=== PATIENT | female | born 1980 | race Caucasian/White ===

== ENCOUNTER 2016-11-15 09:29 | Emergency (ER) | payer MEDICAID ==
[~2016-11-15] VITALS: Ht 152.4 cm; Wt 57.0 kg
[~2016-11-15 09:29] MED LIST: ASPI325T4 PO; OXYC-302 PO
[2016-11-15] MEDS ORDERED: GABA100C8 PO (09:59)
[2016-11-15] MEDS ORDERED: TRAZ100T15 PO (09:59)
[2016-11-15] MEDS ORDERED: [UNRECOGNIZED DRUG - OTHER] PO (10:00)
[2016-11-15] MEDS ORDERED: SODIUM CHLORIDE FLUSH 10ML SYR IVF ONE (10:30)
[2016-11-15] MEDS ORDERED: MORPHINE SULFATE 4 MG/ML, 1ML IVPush PRN (10:30)
[2016-11-15] MEDS ORDERED: ONDANSETRON 2MG/ML, 2ML IVPush ONE (10:30)
[2016-11-15] MEDS ORDERED: ONDANSETRON 2MG/ML, 2ML ONE (10:41)
[2016-11-15] MEDS ORDERED: MORPHINE SULFATE 4 MG/ML, 1ML ONE (10:41)
[2016-11-15 11:07] LABS: ASPARTATE AMINO TRANSFERASE 83 U/L (15-37); BLOOD UREA NITROGEN 7 mg/dL (7-18)
[2016-11-15 13:39] VITALS: BP 117/79
== END 2016-11-15 13:42 | disposition home or self-care (01) ==
LOC: ED 13:36
DX: S22.42XA Multiple fractures of ribs, left side, initial encounter for closed fracture (principal); R10.12 Left upper quadrant pain; R11.2 Nausea with vomiting, unspecified; R19.7 Diarrhea, unspecified; F10.220 Alcohol dependence with intoxication, uncomplicated; F17.210 Nicotine dependence, cigarettes, uncomplicated; F15.10 Other stimulant abuse, uncomplicated; F12.10 Cannabis abuse, uncomplicated; F14.10 Cocaine abuse, uncomplicated; F11.10 Opioid abuse, uncomplicated; X58.XXXA Exposure to other specified factors, initial encounter; Y93.89 Activity, other specified; Y92.89 Other specified places as the place of occurrence of the external cause; Y99.8 Other external cause status
CPT/HCPCS: 36415; 71260; 74177; 80053; 80307; 81003; 82140; 83690; 84703; 85025; 85610; 96374; 96375; 99285; J2405

== ENCOUNTER 2016-11-22 15:09 | Emergency (ER) | payer MEDICAID ==
[~2016-11-22] VITALS: Ht 162.6 cm; Wt 57.0 kg
[~2016-11-22 15:09] MED LIST changes: +GABA100C8 PO; +TRAZ100T15 PO; +[UNRECOGNIZED DRUG - OTHER] PO
[2016-11-22 15:52] LABS: BLOOD UREA NITROGEN 7 mg/dL (7-18)
[2016-11-22] MEDS ORDERED: SODIUM CHLORIDE FLUSH 10ML SYR IVF ONE (16:00)
[2016-11-22] MEDS ORDERED: SODIUM CHLORIDE 0.9% 1,000ML IVBOLUS ONE (16:00)
[2016-11-22] MEDS ORDERED: ESCI10TA PO (16:02)
[2016-11-22] MEDS ORDERED: NALT50TA PO (16:02)
[2016-11-22] MEDS ORDERED: TRAM50TA2 PO (16:02)
[2016-11-22] MEDS ORDERED: ONDA4TAB10 PO (16:02)
[2016-11-22 17:32] VITALS: BP 115/85
== END 2016-11-22 17:39 | disposition other institution (70) ==
LOC: ED 16:29
DX: E86.0 Dehydration (principal); R53.1 Weakness; T40.4X5A Adverse effect of other synthetic narcotics, initial encounter; T40.7X5A Adverse effect of cannabis (derivatives), initial encounter; T43.215A Adverse effect of selective serotonin and norepinephrine reuptake inhibitors, initial encounter; F10.20 Alcohol dependence, uncomplicated; F12.20 Cannabis dependence, uncomplicated; Y92.89 Other specified places as the place of occurrence of the external cause; J45.909 Unspecified asthma, uncomplicated; G40.909 Epilepsy, unspecified, not intractable, without status epilepticus
CPT/HCPCS: 36415; 80048; 81001; 82040; 82550; 85025; 93005; 96360; 99285; J7030

== ENCOUNTER 2016-11-25 19:44 | Inpatient (IN) | payer MEDICAID ==
[~2016-11-25] VITALS: Ht 152.4 cm; Wt 58.7 kg
[~2016-11-25 19:44] MED LIST changes: +ESCI10TA PO; +NALT50TA PO; +ONDA4TAB10 PO; +TRAM50TA2 PO
[2016-11-25] MEDS ORDERED: ONDANSETRON 2MG/ML, 2ML IVPush ONE (20:30)
[2016-11-25] MEDS ORDERED: SODIUM CHLORIDE FLUSH 10ML SYR IVF ONE (20:30)
[2016-11-25] MEDS ORDERED: SODIUM CHLORIDE 0.9% 1,000ML IVBOLUS ONE (20:30)
[2016-11-25 20:50] LABS: ASPARTATE AMINO TRANSFERASE 294 U/L (15-37); BLOOD UREA NITROGEN 7 mg/dL (7-18)
[2016-11-25] MEDS ORDERED: ONDANSETRON 2MG/ML, 2ML ONE ×2 (21:18→21:46)
[2016-11-25] MEDS: SODIUM CHLORIDE 0.9% 1,000ML IVBOLUS ONE ×2 (21:33→22:03)
[2016-11-25] MEDS ORDERED: SODIUM CHLORIDE 0.9% 1,000 ML IV ONE (22:42)
[2016-11-25] MEDS ORDERED: PROCHLORPERAZINE 5 MG/ML, 2ML ONE (22:59)
[2016-11-25] MEDS ORDERED: MORPHINE SULFATE 4 MG/ML, 1ML IVPush PRN ×2 (23:00)
[2016-11-25] MEDS ORDERED: PROCHLORPERAZINE 5 MG/ML, 2ML IVPush ONE (23:00)
[2016-11-25] MEDS ORDERED: ONDANSETRON 2MG/ML, 2ML IVPush PRN (23:00)
[2016-11-25] MEDS ORDERED: METOCLOPRAMIDE 5 MG/ML, 2ML ONE (23:29)
[2016-11-25] MEDS ORDERED: METOCLOPRAMIDE 5 MG/ML, 2ML IVPush ONE (23:30)
[2016-11-25 23:52] VITALS: BP 134/8
[2016-11-26] MEDS: D5%-0.45% NACL 1,000 ML IV SCH ×3 (00:34→18:23)
[2016-11-26] MEDS ORDERED: ONDANSETRON 2MG/ML, 2ML IVP PRN (01:00)
[2016-11-26] MEDS: ENOXAPARIN 40 MG/0.4 ML SQ SCH (01:00)
[2016-11-26] MEDS ORDERED: FOLIC ACID 5 MG/ML IM ONE (01:00)
[2016-11-26] MEDS ORDERED: CHLORDIAZEPOXIDE 10 MG CAPSULE PO PRN (01:00)
[2016-11-26] MEDS ORDERED: THIAMINE 200 MG in DEXTROSE 5% 50 ML IVPB ONE (01:00)
[2016-11-26] MEDS ORDERED: LABETALOL 5MG/ML, 20ML IV PRN (01:00)
[2016-11-26] MEDS ORDERED: CHLORDIAZEPOXIDE 25 MG CAPSULE PO PRN ×3 (01:00)
[2016-11-26 03:25] VITALS: BP 132/90
[2016-11-26 06:35] VITALS: BP 127/83
[2016-11-26] MEDS ORDERED: LORazepam 1MG TABLET PO PRN ×4 (07:30)
[2016-11-26] MEDS ORDERED: LORazepam 2 MG/ML, 1ML IV PRN ×5 (07:30)
[2016-11-26] MEDS ORDERED: LORazepam 0.5MG TABLET PO PRN (07:30)
[2016-11-26] MEDS: CHLORDIAZEPOXIDE 25 MG CAPSULE PO SCH ×3 (07:43→21:10)
[2016-11-26] MEDS: PANTOPRAZOLE 40 MG IV IVP SCH (07:43)
[2016-11-26 08:47] LABS: ASPARTATE AMINO TRANSFERASE 184 U/L (15-37); BLOOD UREA NITROGEN 4 mg/dL (7-18)
[2016-11-26 13:36] VITALS: BP 123/86
[2016-11-26 18:31] VITALS: BP 121/84
[2016-11-27 00:48] VITALS: BP 122/85
[2016-11-27] MEDS: D5%-0.45% NACL 1,000 ML IV SCH ×2 (01:00→07:52)
[2016-11-27] MEDS: ENOXAPARIN 40 MG/0.4 ML SQ SCH (01:00)
[2016-11-27 05:37] LABS: BLOOD UREA NITROGEN 3 mg/dL (7-18)
[2016-11-27 07:14] VITALS: BP 109/77
[2016-11-27] MEDS: PANTOPRAZOLE 40 MG IV IVP SCH (07:51)
[2016-11-27] MEDS: CHLORDIAZEPOXIDE 25 MG CAPSULE PO SCH (07:51)
[2016-11-27] MEDS ORDERED: MAGNESIUM SULFATE PMX 2GM/50ML 50 ML IV ONE (08:00)
[2016-11-27] MEDS ORDERED: SODIUM PHOSPHATE 20 MMOL in SODIUM CHLORIDE 0.9% 500 ML IV SCH (08:30)
[2016-11-27] MEDS ORDERED: POTASSIUM CHLORIDE 20 MEQ TAB.ER.PRT PO SCH (09:00)
[2016-11-27 12:10] VITALS: BP 119/75
== END 2016-11-27 15:56 | disposition left against medical advice (07) | DRG 439 ==
LOC: ED 22:41 → EDIP 22:42 → ED 22:54 → 3NE 23:41
PROVIDERS: ADMIT Internal Medicine; ATTEND Internal Medicine
DX: K85.20 Alcohol induced acute pancreatitis without necrosis or infection (principal); E44.1 Mild protein-calorie malnutrition; E87.1 Hypo-osmolality and hyponatremia; F10.239 Alcohol dependence with withdrawal, unspecified; E87.2 Acidosis; E83.39 Other disorders of phosphorus metabolism; E83.42 Hypomagnesemia; E87.6 Hypokalemia; Y90.8 Blood alcohol level of 240 mg/100 ml or more; J45.909 Unspecified asthma, uncomplicated; K70.10 Alcoholic hepatitis without ascites; K76.0 Fatty (change of) liver, not elsewhere classified; F17.210 Nicotine dependence, cigarettes, uncomplicated; F32.9 Major depressive disorder, single episode, unspecified; E86.1 Hypovolemia; Z53.21 Procedure and treatment not carried out due to patient leaving prior to being seen by health care provider; Z68.25 Body mass index [BMI] 25.0-25.9, adult; Z91.5 Personal history of self-harm; Z82.3 Family history of stroke; Z80.1 Family history of malignant neoplasm of trachea, bronchus and lung; Z80.42 Family history of malignant neoplasm of prostate; Z87.11 Personal history of peptic ulcer disease; Z88.6 Allergy status to analgesic agent
CPT/HCPCS: 36415; 76700; 80048; 80053; 80307; 82962; 83690; 83735; 84100; 84703; 85025; 96361; 96374; 96375; J2405; J3411; C9113; J0780; J2765; J3475; J7030; J7040

== ENCOUNTER 2016-12-16 08:29 | Emergency (ER) | payer MEDICAID ==
[2016-12-16 08:38] VITALS: BP 118/80
[2016-12-16 09:29] LABS: ASPARTATE AMINO TRANSFERASE 474 U/L (15-37); BLOOD UREA NITROGEN 4 mg/dL (7-18)
[2016-12-16] MEDS ORDERED: SODIUM CHLORIDE 0.9% 1,000ML IVBOLUS ONE (09:30)
[2016-12-16] MEDS ORDERED: SODIUM CHLORIDE FLUSH 10ML SYR IVF ONE (09:30)
[2016-12-16 09:50] LABS: DIFF TOTAL CELLS COUNTED 100 CELL DIFF
[2016-12-16 10:07] LABS: ANISOCYTOSIS 1+; TARGET CELLS 1+; VERIFY COUNTS? YES
[2016-12-16 10:51] LABS: DAU SCREEN DISCLAIMER
== END 2016-12-16 11:35 | disposition home or self-care (01) ==
LOC: ED 08:49
DX: F10.121 Alcohol abuse with intoxication delirium (principal); F10.120 Alcohol abuse with intoxication, uncomplicated; G62.1 Alcoholic polyneuropathy; R94.5 Abnormal results of liver function studies; J45.909 Unspecified asthma, uncomplicated; F32.9 Major depressive disorder, single episode, unspecified; F17.210 Nicotine dependence, cigarettes, uncomplicated
CPT/HCPCS: 36415; 80053; 80307; 81003; 82140; 83690; 84146; 85025; 96360; 99284; J7030

== ENCOUNTER 2017-04-07 10:13 | Emergency (ER) | payer MEDICAID ==
[~2017-04-07] VITALS: Ht 152.4 cm; Wt 52.7 kg
[~2017-04-07 10:13] MED LIST changes: +ASPI325T17 PO; -ASPI325T4 PO; +GABA-826 PO; -GABA100C8 PO
[2017-04-07] MEDS ORDERED: TRAZ100T15 PO (10:27)
[2017-04-07] MEDS ORDERED: LORazepam 2 MG/ML, 1ML ONE ×3 (10:56→12:33)
[2017-04-07] MEDS ORDERED: ONDANSETRON 2MG/ML, 2ML ONE (10:56)
[2017-04-07] MEDS: LORazepam 2 MG/ML, 1ML IVPush PRN ×4 (10:59→12:36)
[2017-04-07] MEDS ORDERED: SODIUM CHLORIDE 0.9% 1,000ML IVBOLUS ONE (11:00)
[2017-04-07] MEDS ORDERED: CHLORDIAZEPOXIDE 25 MG CAPSULE PO PRN (11:00)
[2017-04-07] MEDS ORDERED: THIAMINE 100 MG in SODIUM CHLORIDE 0.9% 50 ML IVPB ONE (11:00)
[2017-04-07] MEDS ORDERED: SODIUM CHLORIDE FLUSH 10ML SYR IVF ONE (11:00)
[2017-04-07] MEDS ORDERED: ONDANSETRON 2MG/ML, 2ML IVPush ONE (11:00)
[2017-04-07 11:05] LABS: WHITE BLOOD COUNT 12.8 x10^3/uL (3.4-10)
[2017-04-07 11:11] LABS: BLOOD UREA NITROGEN 5 mg/dL (7-18)
[2017-04-07 13:20] VITALS: BP 132/86
== END 2017-04-07 13:23 | disposition home or self-care (01) ==
LOC: ED 13:15
DX: F10.239 Alcohol dependence with withdrawal, unspecified (principal); G40.909 Epilepsy, unspecified, not intractable, without status epilepticus; G62.9 Polyneuropathy, unspecified; F41.9 Anxiety disorder, unspecified; F32.9 Major depressive disorder, single episode, unspecified; J45.909 Unspecified asthma, uncomplicated; Z88.6 Allergy status to analgesic agent
CPT/HCPCS: 36415; 71010; 80048; 82040; 85025; 93005; 96365; 96375; 96376; 99291; J2060; J2405; J3411; J7030

== ENCOUNTER 2017-05-05 13:51 | Emergency (ER) | payer MEDICAID ==
[~2017-05-05] VITALS: Ht 152.4 cm; Wt 53.1 kg
[2017-05-05 14:07] VITALS: BP 99/67
[2017-05-05] MEDS ORDERED: ALBU0.63 NEB (14:34)
== END 2017-05-05 14:52 | disposition home or self-care (01) ==
LOC: ED 14:46
DX: J45.30 Mild persistent asthma, uncomplicated (principal); F10.20 Alcohol dependence, uncomplicated; F17.210 Nicotine dependence, cigarettes, uncomplicated; F32.9 Major depressive disorder, single episode, unspecified; F41.9 Anxiety disorder, unspecified; G40.909 Epilepsy, unspecified, not intractable, without status epilepticus; Z76.0 Encounter for issue of repeat prescription
CPT/HCPCS: 93005; 99283

== ENCOUNTER 2017-07-01 10:47 | Emergency (ER) | payer MEDICAID ==
[~2017-07-01] VITALS: Ht 162.6 cm; Wt 51.8 kg
[~2017-07-01 10:47] MED LIST changes: +ALBU0.63 NEB; +CITA20TA5 PO; +HYDR50CA2 PO
[2017-07-01] MEDS ORDERED: SODIUM CHLORIDE 0.9% 1,000 ML IV ONE (13:02)
[2017-07-01] MEDS ORDERED: HYDROmorphone 2 MG/ML, 1ML IVPush PRN (13:30)
[2017-07-01] MEDS ORDERED: SODIUM CHLORIDE 0.9% 1,000ML IVBOLUS ONE (13:30)
[2017-07-01] MEDS ORDERED: ONDANSETRON 2MG/ML, 2ML IVPush ONE (13:30)
[2017-07-01 13:36] LABS: HEMATOCRIT 42.4 % (34.6-47.8); HEMOGLOBIN 14.6 g/dL (11.7-16.4); WHITE BLOOD COUNT 6.6 x10^3/uL (3.4-10)
[2017-07-01 13:41] LABS: BLOOD UREA NITROGEN 6 mg/dL (7-18)
[2017-07-01 13:47] LABS: ASPARTATE AMINO TRANSFERASE 196 U/L (15-37)
[2017-07-01] MEDS ORDERED: SODIUM CHLORIDE FLUSH 10ML SYR IVF ONE (14:00)
[2017-07-01 14:21] VITALS: BP 131/90
[2017-07-01 14:21] LABS: ANISOCYTOSIS 2+
== END 2017-07-01 15:22 | disposition left against medical advice (07) ==
LOC: ED 13:48
DX: K85.20 Alcohol induced acute pancreatitis without necrosis or infection (principal); N30.00 Acute cystitis without hematuria; G40.909 Epilepsy, unspecified, not intractable, without status epilepticus; J45.909 Unspecified asthma, uncomplicated; F17.200 Nicotine dependence, unspecified, uncomplicated
CPT/HCPCS: 36415; 76830; 80053; 81001; 83690; 84703; 85025; 87077; 87086; 87186

== ENCOUNTER 2017-07-06 10:08 | Inpatient (IN) | payer MEDICAID ==
[~2017-07-06] VITALS: Ht 154.9 cm; Wt 47.8 kg
[2017-07-06] MEDS ORDERED: FAMOTIDINE 20 MG/2 ML IVP ONE (11:30)
[2017-07-06] MEDS ORDERED: SODIUM CHLORIDE 0.9% 1,000ML IVBOLUS ONE (11:30)
[2017-07-06] MEDS ORDERED: LORazepam 2 MG/ML, 1ML IVPush PRN (11:30)
[2017-07-06] MEDS ORDERED: MORPHINE SULFATE 4 MG/ML, 1ML IVPush PRN (11:30)
[2017-07-06] MEDS ORDERED: THIAMINE 100 MG in SODIUM CHLORIDE 0.9% 50 ML IVPB ONE (11:30)
[2017-07-06] MEDS ORDERED: ONDANSETRON 2MG/ML, 2ML IVPush ONE (11:30)
[2017-07-06] MEDS ORDERED: SODIUM CHLORIDE FLUSH 10ML SYR IVF ONE (11:30)
[2017-07-06] MEDS ORDERED: ONDANSETRON 2MG/ML, 2ML ONE (11:52)
[2017-07-06] MEDS ORDERED: LORazepam 2 MG/ML, 1ML ONE (11:53)
[2017-07-06 11:55] LABS: BLOOD UREA NITROGEN 13 mg/dL (7-18)
[2017-07-06] MEDS ORDERED: CEFTRIAXONE PMX 1GM/50ML 50 ML IV ONE (12:00)
[2017-07-06 12:02] LABS: ASPARTATE AMINO TRANSFERASE 265 U/L (15-37)
[2017-07-06 12:17] LABS: HEMATOCRIT 43.5 % (34.6-47.8); HEMOGLOBIN 14.9 g/dL (11.7-16.4); WHITE BLOOD COUNT 10.9 x10^3/uL (3.4-10)
[2017-07-06] MEDS ORDERED: MAGNESIUM SULFATE PMX 4GM/100M 100 ML IV ONE (12:30)
[2017-07-06] MEDS ORDERED: LORazepam 2 MG/ML, 1ML IV PRN ×3 (14:30)
[2017-07-06] MEDS ORDERED: POLYETHYLENE GLYCOL 17 GM PACKET PO PRN (14:30)
[2017-07-06] MEDS ORDERED: morphine SULFATE 10 MG/ML, 1ML IVPush PRN (14:30)
[2017-07-06] MEDS ORDERED: DOCUSATE 100 MG CAPSULE PO PRN (14:30)
[2017-07-06] MEDS ORDERED: ENALAPRILAT 1.25 MG/ML, 2ML IV PRN (14:30)
[2017-07-06] MEDS ORDERED: hydrALAzine 20 MG/ML, 1ML IV PRN (14:30)
[2017-07-06] MEDS ORDERED: LORazepam 1MG TABLET PO PRN ×2 (14:30)
[2017-07-06] MEDS ORDERED: ONDANSETRON 2MG/ML, 2ML IVPush PRN (14:30)
[2017-07-06] MEDS ORDERED: LABETALOL 5MG/ML, 20ML IVPush PRN (14:30)
[2017-07-06] MEDS ORDERED: MAGNESIUM SULFATE PMX 2GM/50ML 50 ML IV ONE (16:00)
[2017-07-06 16:38] VITALS: BP 153/90
[2017-07-06] MEDS: CEFTRIAXONE PMX 1GM/50ML 50 ML IV SCH (17:00)
[2017-07-06] MEDS: NS + 20MEQ KCL 1,000 ML IV SCH (17:49)
[2017-07-06] MEDS: NICOTINE 14MG/24 HR PATCH.TD24 TD SCH (17:50)
[2017-07-06] MEDS: OXYcodone IR 5MG TABLET PO PRN (17:55)
[2017-07-06 19:31] VITALS: BP 127/88
[2017-07-06] MEDS: TRAZODONE 100MG TABLET PO SCH (20:19)
[2017-07-06] MEDS: hydrOXyzine 50MG TABLET PO SCH (20:25)
[2017-07-06] MEDS: FAMOTIDINE 20 MG TABLET PO SCH (20:25)
[2017-07-07] MEDS: NS + 20MEQ KCL 1,000 ML IV SCH ×2 (00:22→16:01)
[2017-07-07 01:47] VITALS: BP 113/73
[2017-07-07 06:17] LABS: HEMATOCRIT 36.6 % (34.6-47.8); HEMOGLOBIN 12.5 g/dL (11.7-16.4); WHITE BLOOD COUNT 5.5 x10^3/uL (3.4-10)
[2017-07-07 06:21] LABS: ASPARTATE AMINO TRANSFERASE 138 U/L (15-37); BLOOD UREA NITROGEN 14 mg/dL (7-18)
[2017-07-07 07:46] VITALS: BP 116/78
[2017-07-07] MEDS ORDERED: POTASSIUM CHLORIDE 40 MEQ in SODIUM CHLORIDE 0.9% 500 ML IV ONE (09:30)
[2017-07-07] MEDS: FAMOTIDINE 20 MG TABLET PO SCH ×2 (09:54→21:33)
[2017-07-07] MEDS: FOLIC ACID 1 MG TABLET PO SCH (09:54)
[2017-07-07] MEDS: CITALOPRAM 20 MG TABLET PO SCH (09:54)
[2017-07-07] MEDS: THIAMINE 100MG TABLET PO SCH (09:54)
[2017-07-07] MEDS: MULTIVITAMIN 1 TABLET PO SCH (09:54)
[2017-07-07] MEDS: OXYcodone IR 5MG TABLET PO PRN (10:01)
[2017-07-07] MEDS ORDERED: SODIUM PHOSPHATE 4 MEQ/ML IV ONE (14:30)
[2017-07-07 14:31] VITALS: BP 120/82
[2017-07-07] MEDS ORDERED: SODIUM CHLORIDE 0.9% IV ONE (15:00)
[2017-07-07] MEDS ORDERED: SODIUM PHOSPHATE IV ONE (15:00)
[2017-07-07] MEDS: CEFTRIAXONE PMX 1GM/50ML 50 ML IV SCH (16:02)
[2017-07-07] MEDS: NICOTINE 14MG/24 HR PATCH.TD24 TD SCH (16:07)
[2017-07-07 20:09] VITALS: BP 117/76
[2017-07-07] MEDS: TRAZODONE 100MG TABLET PO SCH (21:33)
[2017-07-07] MEDS: hydrOXyzine 50MG TABLET PO SCH (21:33)
[2017-07-08 02:27] VITALS: BP 119/77
[2017-07-08 06:11] LABS: HEMOGLOBIN 11.6 g/dL (11.7-16.4); WHITE BLOOD COUNT 4.8 x10^3/uL (3.4-10)
[2017-07-08 06:19] LABS: ASPARTATE AMINO TRANSFERASE 135 U/L (15-37); BLOOD UREA NITROGEN 6 mg/dL (7-18)
[2017-07-08 07:22] VITALS: BP 109/73
[2017-07-08] MEDS ORDERED: POTASSIUM PHOS 4.4 MEQ/ML IV ONE (08:00)
[2017-07-08] MEDS ORDERED: POTASSIUM PHOSPHATE 22 MEQ in SODIUM CHLORIDE 0.9% 500 ML IV ONE (08:30)
[2017-07-08] MEDS: MULTIVITAMIN 1 TABLET PO SCH (08:50)
[2017-07-08] MEDS: FOLIC ACID 1 MG TABLET PO SCH (08:50)
[2017-07-08] MEDS: THIAMINE 100MG TABLET PO SCH (08:50)
[2017-07-08] MEDS: CITALOPRAM 20 MG TABLET PO SCH (08:50)
[2017-07-08] MEDS: FAMOTIDINE 20 MG TABLET PO SCH ×2 (08:50→20:25)
[2017-07-08 13:18] VITALS: BP 111/78
[2017-07-08] MEDS: CEFTRIAXONE PMX 1GM/50ML 50 ML IV SCH (16:08)
[2017-07-08] MEDS: NICOTINE 14MG/24 HR PATCH.TD24 TD SCH (16:08)
[2017-07-08] MEDS: NS + 20MEQ KCL 1,000 ML IV SCH ×3 (18:25→23:13)
[2017-07-08 19:21] VITALS: BP 125/84
[2017-07-08] MEDS: hydrOXyzine 50MG TABLET PO SCH (20:25)
[2017-07-08] MEDS: TRAZODONE 100MG TABLET PO SCH (20:25)
[2017-07-09 04:00] VITALS: BP 117/76
[2017-07-09 05:46] LABS: BLOOD UREA NITROGEN 5 mg/dL (7-18)
[2017-07-09 05:52] LABS: ASPARTATE AMINO TRANSFERASE 130 U/L (15-37)
[2017-07-09 06:41] LABS: HEMATOCRIT 34.4 % (34.6-47.8); HEMOGLOBIN 11.7 g/dL (11.7-16.4); WHITE BLOOD COUNT 4.9 x10^3/uL (3.4-10)
[2017-07-09 06:42] LABS: DIFF TOTAL CELLS COUNTED 100 CELL DIFF
[2017-07-09 06:55] LABS: VERIFY COUNTS? YES
[2017-07-09 06:56] LABS: ANISOCYTOSIS 1+
[2017-07-09 07:09] VITALS: BP 115/76
[2017-07-09] MEDS: FAMOTIDINE 20 MG TABLET PO SCH ×2 (09:39→20:35)
[2017-07-09] MEDS: FOLIC ACID 1 MG TABLET PO SCH (09:39)
[2017-07-09] MEDS: CITALOPRAM 20 MG TABLET PO SCH (09:39)
[2017-07-09] MEDS: MULTIVITAMIN 1 TABLET PO SCH (09:39)
[2017-07-09] MEDS: THIAMINE 100MG TABLET PO SCH (09:39)
[2017-07-09] MEDS: NEUTRA PHOS K 250 MG TABLET PO SCH ×3 (12:05→20:35)
[2017-07-09] MEDS: OXYcodone IR 5MG TABLET PO PRN (12:05)
[2017-07-09 12:25] VITALS: BP 112/72
[2017-07-09] MEDS: NS + 20MEQ KCL 1,000 ML IV SCH (14:01)
[2017-07-09] MEDS: NICOTINE 14MG/24 HR PATCH.TD24 TD SCH (14:01)
[2017-07-09 19:15] VITALS: BP 124/80
[2017-07-09] MEDS: hydrOXyzine 50MG TABLET PO SCH (20:35)
[2017-07-09] MEDS: TRAZODONE 100MG TABLET PO SCH (20:35)
[2017-07-10 02:15] VITALS: BP 132/79
[2017-07-10 07:25] VITALS: BP 124/76
[2017-07-10] MEDS ORDERED: POTASSIUM PHOS 4.4 MEQ/ML IV SCH (08:00)
[2017-07-10] MEDS ORDERED: POTASSIUM PHOSPHATE 44 MEQ in SODIUM CHLORIDE 0.9% 500 ML IV ONE (08:00)
[2017-07-10] MEDS ORDERED: POTASSIUM CHLORIDE 20 MEQ TAB.ER.PRT PO ONE (08:00)
[2017-07-10] MEDS: THIAMINE 100MG TABLET PO SCH (09:36)
[2017-07-10] MEDS: FAMOTIDINE 20 MG TABLET PO SCH ×2 (09:36→20:29)
[2017-07-10] MEDS: CITALOPRAM 20 MG TABLET PO SCH (09:36)
[2017-07-10] MEDS: FOLIC ACID 1 MG TABLET PO SCH (09:36)
[2017-07-10] MEDS: MULTIVITAMIN 1 TABLET PO SCH (09:36)
[2017-07-10] MEDS: NEUTRA PHOS K 250 MG TABLET PO SCH ×3 (09:36→20:28)
[2017-07-10] MEDS: MAGNESIUM OXIDE 400 MG TABLET PO SCH ×2 (09:36→20:28)
[2017-07-10 13:33] VITALS: BP 95/63
[2017-07-10] MEDS: NICOTINE 14MG/24 HR PATCH.TD24 TD SCH (15:26)
[2017-07-10] MEDS: OXYcodone IR 5MG TABLET PO PRN (16:48)
[2017-07-10 20:00] VITALS: BP 130/88
[2017-07-10] MEDS: hydrOXyzine 50MG TABLET PO SCH (20:28)
[2017-07-10] MEDS: ACETAMINOPHEN 325 MG TABLET PO PRN (20:28)
[2017-07-10] MEDS: TRAZODONE 100MG TABLET PO SCH (20:29)
[2017-07-10] MEDS: LORazepam 0.5MG TABLET PO PRN (22:59)
[2017-07-11 02:00] VITALS: BP 119/75
[2017-07-11] MEDS: LORazepam 0.5MG TABLET PO PRN (05:14)
[2017-07-11 05:44] LABS: HEMATOCRIT 34.9 % (34.6-47.8); HEMOGLOBIN 11.9 g/dL (11.7-16.4); WHITE BLOOD COUNT 3.9 x10^3/uL (3.4-10)
[2017-07-11 06:12] LABS: ASPARTATE AMINO TRANSFERASE 96 U/L (15-37); BLOOD UREA NITROGEN 3 mg/dL (7-18)
[2017-07-11 07:00] VITALS: BP 122/78
[2017-07-11] MEDS ORDERED: MAGNESIUM SULFATE PMX 4GM/100M 100 ML IV ONE (07:30)
[2017-07-11] MEDS ORDERED: POTASSIUM CHLORIDE 20 MEQ TAB.ER.PRT PO ONE (07:30)
[2017-07-11] MEDS: FAMOTIDINE 20 MG TABLET PO SCH ×2 (09:26→21:03)
[2017-07-11] MEDS: THIAMINE 100MG TABLET PO SCH (09:26)
[2017-07-11] MEDS: MULTIVITAMIN 1 TABLET PO SCH (09:27)
[2017-07-11] MEDS: NEUTRA PHOS K 250 MG TABLET PO SCH ×3 (09:27→21:03)
[2017-07-11] MEDS: CITALOPRAM 20 MG TABLET PO SCH (09:27)
[2017-07-11] MEDS: FOLIC ACID 1 MG TABLET PO SCH (09:27)
[2017-07-11] MEDS: MAGNESIUM OXIDE 400 MG TABLET PO SCH ×2 (09:27→21:03)
[2017-07-11 12:09] VITALS: BP 114/85
[2017-07-11] MEDS: NICOTINE 14MG/24 HR PATCH.TD24 TD SCH (13:48)
[2017-07-11] MEDS: ACETAMINOPHEN 325 MG TABLET PO PRN (13:51)
[2017-07-11] MEDS: OXYcodone IR 5MG TABLET PO PRN ×2 (16:31→21:03)
[2017-07-11 20:00] VITALS: BP 102/69
[2017-07-11] MEDS: TRAZODONE 100MG TABLET PO SCH (21:03)
[2017-07-11] MEDS: hydrOXyzine 50MG TABLET PO SCH (21:03)
[2017-07-11] MEDS ORDERED: GUAIFENESIN 200 MG TABLET PO PRN (22:30)
[2017-07-12 02:00] VITALS: BP 100/70
[2017-07-12 07:31] VITALS: BP 114/79
[2017-07-12] MEDS: THIAMINE 100MG TABLET PO SCH (08:30)
[2017-07-12] MEDS: MAGNESIUM OXIDE 400 MG TABLET PO SCH (08:30)
[2017-07-12] MEDS: MULTIVITAMIN 1 TABLET PO SCH (08:30)
[2017-07-12] MEDS: CITALOPRAM 20 MG TABLET PO SCH (08:30)
[2017-07-12] MEDS: FOLIC ACID 1 MG TABLET PO SCH (08:30)
[2017-07-12] MEDS: NEUTRA PHOS K 250 MG TABLET PO SCH (08:31)
[2017-07-12] MEDS: FAMOTIDINE 20 MG TABLET PO SCH (08:31)
[2017-07-12] MEDS ORDERED: CITA20TA5 PO (09:39)
[2017-07-12] MEDS ORDERED: TRAZ100T15 PO (09:39)
== END 2017-07-12 12:14 | disposition home or self-care (01) | DRG 438 ==
LOC: ED 12:16 → EDIP 12:17 → ED 12:22 → 4EST 15:33
PROVIDERS: ADMIT Hospitalist; ATTEND Family Medicine
DX: K85.20 Alcohol induced acute pancreatitis without necrosis or infection (principal); N17.0 Acute kidney failure with tubular necrosis; D69.59 Other secondary thrombocytopenia; E83.42 Hypomagnesemia; E87.2 Acidosis; E87.1 Hypo-osmolality and hyponatremia; F10.239 Alcohol dependence with withdrawal, unspecified; D64.9 Anemia, unspecified; K86.0 Alcohol-induced chronic pancreatitis; E86.0 Dehydration; F17.210 Nicotine dependence, cigarettes, uncomplicated; E87.6 Hypokalemia; F32.9 Major depressive disorder, single episode, unspecified; F41.1 Generalized anxiety disorder; R19.5 Other fecal abnormalities; G40.909 Epilepsy, unspecified, not intractable, without status epilepticus; J45.909 Unspecified asthma, uncomplicated; K70.10 Alcoholic hepatitis without ascites; N83.209 Unspecified ovarian cyst, unspecified side; Z80.1 Family history of malignant neoplasm of trachea, bronchus and lung; Z91.19 Patient's noncompliance with other medical treatment and regimen
CPT/HCPCS: 36415; 80053; 80061; 81001; 82010; 83690; 83735; 84100; 84703; 85025; 87086; 96365; 96366; 96368; 96375; J0696; J2405; J3411; J3480; J2060; J3475; J7030; J7040; S0028

== ENCOUNTER 2017-08-06 04:49 | Emergency (ER) | payer MEDICAID ==
[~2017-08-06] VITALS: Ht 152.4 cm; Wt 50.0 kg
[2017-08-06 06:27] LABS: BASOPHILS # (AUTO) 0.04 x10^3/uL (0-0.1); BASOPHILS % (AUTO) 1 % (0-1); EOSINOPHILS # (AUTO) 0.28 x10^3/uL (0-0.4); EOSINOPHILS % (AUTO) 4 % (1-7); LYMPHOCYTES % (AUTO) 48 % (22-44); MD NO; MEAN CORPUSCULAR HEMOGLOBIN 31.1 pg (27.0-34.8); MEAN CORPUSCULAR HGB CONC 33.4 g/dL (32.4-35.8); MEAN CORPUSCULAR VOLUME 93.1 fL (80-100); MEAN PLATELET VOLUME 8.8 fL (7.4-10.4); MONOCYTES # (AUTO) 0.34 x10^3/uL (0.2-0.8); MONOCYTES % (AUTO) 5 % (2-9); NEUTROPHILS # (AUTO) 2.96 x10^3/uL (1.8-6.8); NEUTROPHILS % (AUTO) 43 % (42-75); PLATELET COUNT 277 x10^3/uL (130-400); RED BLOOD COUNT 4.15 x10^6/uL (3.82-5.3); RED CELL DISTRIBUTION WIDTH 16.7 % (9.6-15.2)
[2017-08-06 06:38] LABS: ALANINE AMINOTRANSFERASE 30 U/L (12-78); ALBUMIN 3.1 g/dL (3.4-5.0); ANION GAP 10 mmol/L (5-15); CALCIUM 7.8 mg/dL (8.5-10.1); CHLORIDE 111 mmol/L (98-107); CREATININE 0.47 mg/dL (0.55-1.02)
[2017-08-06 06:40] LABS: ALKALINE PHOSPHATASE 65 U/L (45-117); TOTAL PROTEIN 7.3 g/dL (6.4-8.2)
[2017-08-06 06:41] LABS: BILIRUBIN,TOTAL < 0.1 mg/dL (0.2-1.0)
[2017-08-06 07:13] LABS: HCG UR SG 1.006 (1.003-1.030); MICROSCOPIC NOT IND
[2017-08-06 07:14] LABS: CULTURE INDICATED? NO
[2017-08-06 08:45] VITALS: BP 102/68
== END 2017-08-06 08:48 | disposition home or self-care (01) ==
LOC: ED 08:30
DX: R10.32 Left lower quadrant pain (principal); R10.12 Left upper quadrant pain; J45.909 Unspecified asthma, uncomplicated; F10.20 Alcohol dependence, uncomplicated
CPT/HCPCS: 36415; 74021; 76770; 76830; 80053; 81003; 81025; 83690; 85025; 99285

== ENCOUNTER 2017-08-18 01:04 | Inpatient (IN) | payer MEDICAID ==
[~2017-08-18] VITALS: Ht 152.4 cm; Wt 52.8 kg
[2017-08-18] MEDS ORDERED: SODIUM CHLORIDE 0.9% 1,000ML IVBOLUS ONE (01:30)
[2017-08-18] MEDS ORDERED: ONDANSETRON 2MG/ML, 2ML IVPush ONE ×2 (01:30→04:00)
[2017-08-18] MEDS ORDERED: morphine SULFATE 10 MG/ML, 1ML IVPush ONE (01:30)
[2017-08-18] MEDS ORDERED: SODIUM CHLORIDE FLUSH 10ML SYR IVF ONE (01:30)
[2017-08-18] MEDS ORDERED: ONDANSETRON ODT 4 MG PO ONE (01:30)
[2017-08-18] MEDS ORDERED: HYDROcodone/APAP 5/325 TABLET PO PRN (01:30)
[2017-08-18] MEDS ORDERED: LORazepam 2 MG/ML, 1ML ONE ×2 (01:37→03:18)
[2017-08-18] MEDS ORDERED: ONDANSETRON 2MG/ML, 2ML ONE ×3 (01:37→05:29)
[2017-08-18] MEDS: LORazepam 2 MG/ML, 1ML IVPush PRN ×4 (01:40→03:59)
[2017-08-18 01:50] LABS: ALBUMIN 4.4 g/dL (3.4-5.0); ANION GAP 34 mmol/L (5-15); CALCIUM 8.7 mg/dL (8.5-10.1); CHLORIDE 95 mmol/L (98-107); CREATININE 1.23 mg/dL (0.55-1.02)
[2017-08-18 02:04] LABS: BASOPHILS # (AUTO) 0.02 x10^3/uL (0-0.1); BASOPHILS % (AUTO) 0 % (0-1); EOSINOPHILS % (AUTO) 0 % (1-7); LYMPHOCYTES # (AUTO) 0.77 x10^3/uL (1-3.4); LYMPHOCYTES % (AUTO) 6 % (22-44); MD NO; MEAN CORPUSCULAR HEMOGLOBIN 31.8 pg (27.0-34.8); MEAN CORPUSCULAR HGB CONC 32.2 g/dL (32.4-35.8); MEAN CORPUSCULAR VOLUME 98.7 fL (80-100); MEAN PLATELET VOLUME 9.3 fL (7.4-10.4); MONOCYTES # (AUTO) 0.45 x10^3/uL (0.2-0.8); MONOCYTES % (AUTO) 3 % (2-9); NEUTROPHILS # (AUTO) 12.25 x10^3/uL (1.8-6.8); NEUTROPHILS % (AUTO) 91 % (42-75); PLATELET COUNT 216 x10^3/uL (130-400); RED BLOOD COUNT 4.79 x10^6/uL (3.82-5.3); RED CELL DISTRIBUTION WIDTH 17.4 % (9.6-15.2)
[2017-08-18] MEDS ORDERED: MORPHINE SULFATE 4 MG/ML, 1ML ONE (02:05)
[2017-08-18] MEDS ORDERED: SODIUM BICARBONATE 8.4% 75 MEQ in DEXTROSE 5% 1,000 ML IV SCH (02:30)
[2017-08-18 02:55] LABS: ACETONE, SERUM Moderate(40mg/dL) mg/dL (Negative)
[2017-08-18] MEDS ORDERED: MAGNESIUM SULFATE 1 GM, THIAMINE 100 MG, FOLIC ACID 1 MG, MVI ADULT 10 ML in SODIUM CHL... IV ONE (03:00)
[2017-08-18] MEDS ORDERED: METOCLOPRAMIDE 5 MG/ML, 2ML ONE (03:48)
[2017-08-18] MEDS: LACTATED RINGERS 1,000 ML IV SCH ×2 (04:30→09:30)
[2017-08-18] MEDS ORDERED: ACETAMINOPHEN 325 MG TABLET PO PRN (04:30)
[2017-08-18] MEDS ORDERED: ONDANSETRON 2MG/ML, 2ML IVPush PRN (04:30)
[2017-08-18] MEDS ORDERED: morphine SULFATE 10 MG/ML, 1ML IVPush PRN (04:30)
[2017-08-18] MEDS ORDERED: METOCLOPRAMIDE 5 MG/ML, 2ML IVPush ONE (04:30)
[2017-08-18] MEDS ORDERED: LORazepam 2 MG/ML, 1ML IV PRN ×4 (05:00)
[2017-08-18] MEDS ORDERED: ALBUTEROL SULFATE 2.5 MG/3 ML NPPB PRN (06:00)
[2017-08-18 06:17] LABS: MEAN CORPUSCULAR HEMOGLOBIN 31.7 pg (27.0-34.8); MEAN CORPUSCULAR HGB CONC 32.1 g/dL (32.4-35.8); MEAN CORPUSCULAR VOLUME 98.7 fL (80-100); MEAN PLATELET VOLUME 8.7 fL (7.4-10.4); PLATELET COUNT 181 x10^3/uL (130-400); RED BLOOD COUNT 4.01 x10^6/uL (3.82-5.3); RED CELL DISTRIBUTION WIDTH 17.2 % (9.6-15.2)
[2017-08-18 06:18] LABS: ALBUMIN 3.3 g/dL (3.4-5.0); ANION GAP 23 mmol/L (5-15); CALCIUM 6.7 mg/dL (8.5-10.1); CHLORIDE 99 mmol/L (98-107)
[2017-08-18] MEDS ORDERED: OMNIPAQUE 350 MG/ML, 100ML BOTTLE ONE (06:24)
[2017-08-18 06:39] LABS: MD YES
[2017-08-18 06:43] LABS: BAND#(MANUAL) 0.54 x10^3/uL; BANDS%(MANUAL) 6 % (0-7); LYMPH#(MANUAL) 0.99 x10^3/uL (1-3.4); LYMPHS% (MANUAL) 11 % (22-44); SEG#(MANUAL) 7.47 x10^3/uL (1.8-6.8); SEGS% (MANUAL) 83 % (42-75)
[2017-08-18 06:44] LABS: <PLATELET ESTIMATE> ADEQUATE; <PLT MORPHOLOGY> NORMAL PLT MORPH; ANISOCYTOSIS 1+
[2017-08-18 06:51] LABS: ALANINE AMINOTRANSFERASE 43 U/L (12-78); ALKALINE PHOSPHATASE 107 U/L (45-117); BILIRUBIN,TOTAL 0.4 mg/dL (0.2-1.0); CREATININE 0.93 mg/dL (0.55-1.02); TOTAL PROTEIN 7.8 g/dL (6.4-8.2)
[2017-08-18] MEDS ORDERED: PHENOBARBITAL SODIUM 65 MG/ML, 1ML IVPush ONE (07:30)
[2017-08-18] MEDS: INSULIN LISPRO 100 UNITS/ML, PEN SQ-INSULIN SCH ×5 (07:30→20:52)
[2017-08-18] MEDS: D5 IV SCH ×3 (07:52→18:54)
[2017-08-18] MEDS: NACL IV SCH ×3 (07:52→18:54)
[2017-08-18] MEDS: SODIUM BICARB 8.4% IV SCH ×3 (07:52→18:54)
[2017-08-18] MEDS ORDERED: PHENOBARBITAL SODIUM 500 MG in SODIUM CHLORIDE 0.9% 50 ML IV ONE (08:00)
[2017-08-18] MEDS ORDERED: FAMOTIDINE 20 MG/2 ML IVPush SCH (09:00)
[2017-08-18] MEDS ORDERED: FAMOTIDINE 20 MG/2 ML ONE (09:03)
[2017-08-18 10:22] LABS: ANION GAP 19 mmol/L (5-15); CALCIUM 6.3 mg/dL (8.5-10.1); CHLORIDE 97 mmol/L (98-107); CREATININE 0.82 mg/dL (0.55-1.02)
[2017-08-18] MEDS: THIAMINE 200 MG in SODIUM CHLORIDE 0.9% 50 ML IV SCH (10:46)
[2017-08-18] MEDS ORDERED: ERGOCALCIFEROL 50,000 UNIT CAPSULE PO SCH (12:00)
[2017-08-18] MEDS ORDERED: CALCIUM CHLORIDE 13.6 MEQ in SODIUM CHLORIDE 0.9% 100 ML IV ONE (12:00)
[2017-08-18] MEDS: PANTOPRAZOLE 40 MG IV IVPush SCH ×2 (12:57→23:25)
[2017-08-18] MEDS: INSULIN GLARGINE 100 UNITS/ML, PEN SQ-INSULIN SCH (13:43)
[2017-08-18] MEDS: AMPICILLIN/SULBACTAM 3 GM in SODIUM CHLORIDE 0.9% 100 ML IV SCH ×2 (13:45→19:37)
[2017-08-18] MEDS: PHENOBARBITAL 20 MG/5 ML ORAL SOL PO SCH (16:36)
[2017-08-18] MEDS: metroNIDAZOLE 500 MG TABLET PO SCH (16:36)
[2017-08-18] MEDS: CLARITHROMYCIN 500 MG TABLET PO SCH (16:36)
[2017-08-18] MEDS: ALBUTEROL SULFATE 2.5 MG/3 ML NPPB SCH ×2 (18:31→22:58)
[2017-08-18] MEDS ORDERED: ACETYLCYSTEINE 20%, 4ML NPPB SCH (20:00)
[2017-08-18] MEDS: hydrOXyzine 50MG TABLET PO SCH (20:56)
[2017-08-19] MEDS: AMPICILLIN/SULBACTAM 3 GM in SODIUM CHLORIDE 0.9% 100 ML IV SCH ×4 (01:32→22:38)
[2017-08-19] MEDS: ALBUTEROL SULFATE 2.5 MG/3 ML NPPB SCH (03:00)
[2017-08-19 03:54] VITALS: BP 105/75
[2017-08-19] MEDS: metroNIDAZOLE 500 MG TABLET PO SCH ×2 (04:46→16:45)
[2017-08-19] MEDS: CLARITHROMYCIN 500 MG TABLET PO SCH ×2 (04:46→16:45)
[2017-08-19] MEDS: PHENOBARBITAL 20 MG/5 ML ORAL SOL PO SCH ×2 (04:46→16:46)
[2017-08-19] MEDS ORDERED: POTASSIUM CHLORIDE 20 MEQ, MAGNESIUM SULFATE 1 GM, FOLIC ACID 1 MG, THIAMINE 100 MG, MV... IV SCH (05:00)
[2017-08-19 05:02] LABS: ALANINE AMINOTRANSFERASE 22 U/L (12-78); ALBUMIN 2.3 g/dL (3.4-5.0); ANION GAP 10 mmol/L (5-15); CALCIUM 7.1 mg/dL (8.5-10.1); CHLORIDE 94 mmol/L (98-107); CREATININE 0.64 mg/dL (0.55-1.02)
[2017-08-19 05:04] LABS: ALKALINE PHOSPHATASE 60 U/L (45-117); BILIRUBIN,TOTAL 0.5 mg/dL (0.2-1.0)
[2017-08-19 05:34] LABS: MEAN CORPUSCULAR HEMOGLOBIN 32.9 pg (27.0-34.8); MEAN CORPUSCULAR HGB CONC 34.4 g/dL (32.4-35.8); MEAN CORPUSCULAR VOLUME 95.4 fL (80-100); MEAN PLATELET VOLUME 9.2 fL (7.4-10.4); PLATELET COUNT 117 x10^3/uL (130-400); RED BLOOD COUNT 3.46 x10^6/uL (3.82-5.3); RED CELL DISTRIBUTION WIDTH 16.5 % (9.6-15.2)
[2017-08-19 05:54] LABS: MD YES
[2017-08-19 05:56] LABS: BAND#(MANUAL) 1.61 x10^3/uL; BANDS%(MANUAL) 26 % (0-7); BASOS#(MANUAL) 0.12 x10^3/uL (0-0.1); BASOS% (MANUAL) 2 % (0-1); EOS#(MANUAL) 0.12 x10^3/uL (0.0-0.4); EOS% (MANUAL) 2 % (1-7); LYMPH#(MANUAL) 1.49 x10^3/uL (1-3.4); LYMPHS% (MANUAL) 24 % (22-44); MONOS#(MANUAL) 0.19 x10^3/uL (0.3-2.7); MONOS% (MANUAL) 3 % (2-9); SEG#(MANUAL) 2.67 x10^3/uL (1.8-6.8); SEGS% (MANUAL) 43 % (42-75)
[2017-08-19 05:57] LABS: ANISOCYTOSIS 1+
[2017-08-19 05:59] LABS: <PLATELET ESTIMATE> DECREASED; <PLT MORPHOLOGY> NORMAL PLT MORPH
[2017-08-19] MEDS ORDERED: POTASSIUM PHOSPHATE 44 MEQ in SODIUM CHLORIDE 0.9% 500 ML IV ONE (06:00)
[2017-08-19] MEDS ORDERED: MAGNESIUM SULFATE PMX 4GM/100M 100 ML IV ONE (06:00)
[2017-08-19] MEDS: INSULIN LISPRO 100 UNITS/ML, PEN SQ-INSULIN SCH ×4 (06:13→21:00)
[2017-08-19 07:13] LABS: FIO2 45 %
[2017-08-19] MEDS ORDERED: D5 IV SCH (07:30)
[2017-08-19] MEDS ORDERED: SODIUM BICARB 8.4% IV SCH (07:30)
[2017-08-19] MEDS ORDERED: NACL IV SCH (07:30)
[2017-08-19] MEDS: INSULIN GLARGINE 100 UNITS/ML, PEN SQ-INSULIN SCH (09:00)
[2017-08-19] MEDS: NS + 20MEQ KCL 1,000 ML IV SCH (10:11)
[2017-08-19] MEDS: THIAMINE 200 MG in SODIUM CHLORIDE 0.9% 50 ML IV SCH (12:15)
[2017-08-19] MEDS: PANTOPRAZOLE 40 MG IV IVPush SCH (12:15)
[2017-08-19 15:39] LABS: ANION GAP 8 mmol/L (5-15); CALCIUM 7.3 mg/dL (8.5-10.1); CHLORIDE 98 mmol/L (98-107); CREATININE 0.43 mg/dL (0.55-1.02)
[2017-08-19] MEDS ORDERED: POTASSIUM CHLORIDE 20 MEQ TAB.ER.PRT PO ONE (16:00)
[2017-08-19] MEDS: PANTOPRAZOLE 20MG TABLET PO SCH (21:54)
[2017-08-19] MEDS: hydrOXyzine 50MG TABLET PO SCH (21:55)
[2017-08-20] MEDS: NS + 20MEQ KCL 1,000 ML IV SCH ×2 (01:43→22:58)
[2017-08-20 04:00] VITALS: BP 108/83
[2017-08-20] MEDS: CLARITHROMYCIN 500 MG TABLET PO SCH ×2 (04:13→18:27)
[2017-08-20] MEDS: metroNIDAZOLE 500 MG TABLET PO SCH ×2 (04:13→18:27)
[2017-08-20 04:37] LABS: ALANINE AMINOTRANSFERASE 23 U/L (12-78); ALBUMIN 2.5 g/dL (3.4-5.0); ANION GAP 8 mmol/L (5-15); CALCIUM 7.4 mg/dL (8.5-10.1); CHLORIDE 105 mmol/L (98-107)
[2017-08-20 04:40] LABS: ALKALINE PHOSPHATASE 64 U/L (45-117); BILIRUBIN,TOTAL 0.4 mg/dL (0.2-1.0); CREATININE 0.37 mg/dL (0.55-1.02); TOTAL PROTEIN 5.8 g/dL (6.4-8.2)
[2017-08-20] MEDS: AMPICILLIN/SULBACTAM 3 GM in SODIUM CHLORIDE 0.9% 100 ML IV SCH ×4 (04:45→22:58)
[2017-08-20] MEDS: PHENOBARBITAL 20 MG/5 ML ORAL SOL PO SCH ×2 (04:45→18:27)
[2017-08-20 04:55] LABS: MEAN CORPUSCULAR HEMOGLOBIN 32.7 pg (27.0-34.8); MEAN CORPUSCULAR HGB CONC 34.2 g/dL (32.4-35.8); MEAN CORPUSCULAR VOLUME 95.6 fL (80-100); RED CELL DISTRIBUTION WIDTH 16.9 % (9.6-15.2)
[2017-08-20 05:45] LABS: MD YES; MEAN PLATELET VOLUME 9.8 fL (7.4-10.4); PLATELET COUNT 99 x10^3/uL (130-400)
[2017-08-20 05:47] LABS: EOS#(MANUAL) 0.09 x10^3/uL (0.0-0.4); EOS% (MANUAL) 1 % (1-7); LYMPH#(MANUAL) 1.87 x10^3/uL (1-3.4); LYMPHS% (MANUAL) 22 % (22-44); METAMYELOCYTES# (MANUAL) 0.09 x10^3/uL (0-0); METAMYELOCYTES% (MANUAL) 1 % (0-1); MONOS#(MANUAL) 0.26 x10^3/uL (0.3-2.7); MONOS% (MANUAL) 3 % (2-9); SEG#(MANUAL) 6.21 x10^3/uL (1.8-6.8); SEGS% (MANUAL) 73 % (42-75)
[2017-08-20 05:50] LABS: <PLATELET ESTIMATE> DECREASED; <PLT MORPHOLOGY> NORMAL PLT MORPH; ANISOCYTOSIS 1+
[2017-08-20] MEDS: INSULIN LISPRO 100 UNITS/ML, PEN SQ-INSULIN SCH ×4 (06:27→21:00)
[2017-08-20] MEDS: PANTOPRAZOLE 20MG TABLET PO SCH ×2 (08:49→21:37)
[2017-08-20] MEDS: INSULIN GLARGINE 100 UNITS/ML, PEN SQ-INSULIN SCH (08:49)
[2017-08-20] MEDS: THIAMINE 200 MG in SODIUM CHLORIDE 0.9% 50 ML IV SCH (09:26)
[2017-08-20] MEDS ORDERED: POTASSIUM PHOSPHATE 44 MEQ in SODIUM CHLORIDE 0.9% 500 ML IV ONE (10:00)
[2017-08-20 12:21] LABS: HIT RESULT POSITIVE (NEGATIVE)
[2017-08-20] MEDS ORDERED: ACETYLCYSTEINE 20%, 4ML NPPB SCH (15:00)
[2017-08-20 19:31] VITALS: BP 105/72
[2017-08-20] MEDS: hydrOXyzine 50MG TABLET PO SCH (21:37)
[2017-08-21 02:29] VITALS: BP 109/76
[2017-08-21 04:44] LABS: BASOPHILS # (AUTO) 0.02 x10^3/uL (0-0.1); BASOPHILS % (AUTO) 0 % (0-1); EOSINOPHILS # (AUTO) 0.14 x10^3/uL (0-0.4); EOSINOPHILS % (AUTO) 2 % (1-7); LYMPHOCYTES # (AUTO) 2.09 x10^3/uL (1-3.4); LYMPHOCYTES % (AUTO) 34 % (22-44); MD NO; MEAN CORPUSCULAR HEMOGLOBIN 32.3 pg (27.0-34.8); MEAN CORPUSCULAR VOLUME 94.9 fL (80-100); MEAN PLATELET VOLUME 9.6 fL (7.4-10.4); MONOCYTES # (AUTO) 0.28 x10^3/uL (0.2-0.8); MONOCYTES % (AUTO) 5 % (2-9); NEUTROPHILS # (AUTO) 3.63 x10^3/uL (1.8-6.8); NEUTROPHILS % (AUTO) 59 % (42-75); PLATELET COUNT 110 x10^3/uL (130-400); RED BLOOD COUNT 3.54 x10^6/uL (3.82-5.3); RED CELL DISTRIBUTION WIDTH 17.2 % (9.6-15.2)
[2017-08-21 04:55] LABS: ALBUMIN 2.6 g/dL (3.4-5.0); ANION GAP 11 mmol/L (5-15); CALCIUM 7.7 mg/dL (8.5-10.1); CHLORIDE 106 mmol/L (98-107)
[2017-08-21 04:58] LABS: ALANINE AMINOTRANSFERASE 19 U/L (12-78); ALKALINE PHOSPHATASE 72 U/L (45-117); BILIRUBIN,TOTAL 0.4 mg/dL (0.2-1.0); CREATININE 0.44 mg/dL (0.55-1.02); TOTAL PROTEIN 6.4 g/dL (6.4-8.2)
[2017-08-21] MEDS: AMPICILLIN/SULBACTAM 3 GM in SODIUM CHLORIDE 0.9% 100 ML IV SCH ×5 (05:34→23:13)
[2017-08-21] MEDS: metroNIDAZOLE 500 MG TABLET PO SCH ×2 (05:34→16:24)
[2017-08-21] MEDS: CLARITHROMYCIN 500 MG TABLET PO SCH ×2 (05:34→16:24)
[2017-08-21] MEDS: PHENOBARBITAL 20 MG/5 ML ORAL SOL PO SCH ×2 (05:34→16:25)
[2017-08-21 06:33] VITALS: BP 110/77
[2017-08-21] MEDS: INSULIN LISPRO 100 UNITS/ML, PEN SQ-INSULIN SCH ×2 (07:00→11:00)
[2017-08-21] MEDS: NS + 20MEQ KCL 1,000 ML IV SCH ×2 (08:57→21:00)
[2017-08-21] MEDS: THIAMINE 200 MG in SODIUM CHLORIDE 0.9% 50 ML IV SCH (08:57)
[2017-08-21] MEDS: PANTOPRAZOLE 20MG TABLET PO SCH ×2 (08:58→19:44)
[2017-08-21] MEDS: INSULIN GLARGINE 100 UNITS/ML, PEN SQ-INSULIN SCH (08:58)
[2017-08-21] MEDS ORDERED: NICOTINE 21 MG/24 HR PATCH.TD24 TD SCH (10:30)
[2017-08-21] MEDS: POTASSIUM CHLORIDE 20 MEQ TAB.ER.PRT PO SCH ×2 (10:41→16:24)
[2017-08-21 12:05] LABS: HEMOGLOBIN A1C 4.9 % (4.2-6.3)
[2017-08-21 12:20] VITALS: BP 113/77
[2017-08-21] MEDS: hydrOXyzine 50MG TABLET PO SCH (19:44)
[2017-08-21 20:36] VITALS: BP 120/83
[2017-08-22 02:30] VITALS: BP 111/74
[2017-08-22] MEDS: CLARITHROMYCIN 500 MG TABLET PO SCH (03:46)
[2017-08-22] MEDS: metroNIDAZOLE 500 MG TABLET PO SCH (03:46)
[2017-08-22] MEDS: NS + 20MEQ KCL 1,000 ML IV SCH (03:46)
[2017-08-22] MEDS: AMPICILLIN/SULBACTAM 3 GM in SODIUM CHLORIDE 0.9% 100 ML IV SCH (04:48)
[2017-08-22] MEDS: PHENOBARBITAL 20 MG/5 ML ORAL SOL PO SCH (04:49)
[2017-08-22] MEDS ORDERED: PHENOBARBITAL 20 MG/5 ML ORAL SOL PO SCH (17:00)
[2017-08-23] MEDS ORDERED: PHENOBARBITAL 20 MG/5 ML ORAL SOL PO SCH (17:00)
== END 2017-08-22 07:00 | disposition left against medical advice (07) | DRG 438 ==
LOC: ED 01:30 → EDIP 02:41 → 5SO 10:40 → EDIP 10:49 → CCU 12:32 → 4WST 08-20 11:24
PROVIDERS: ADMIT Hospitalist; ATTEND Hospitalist
DX: K85.20 Alcohol induced acute pancreatitis without necrosis or infection (principal); N17.0 Acute kidney failure with tubular necrosis; J18.9 Pneumonia, unspecified organism; D69.6 Thrombocytopenia, unspecified; E11.65 Type 2 diabetes mellitus with hyperglycemia; E87.2 Acidosis; K76.0 Fatty (change of) liver, not elsewhere classified; D75.82 Heparin induced thrombocytopenia (HIT); F10.239 Alcohol dependence with withdrawal, unspecified; N25.81 Secondary hyperparathyroidism of renal origin; E87.1 Hypo-osmolality and hyponatremia; E83.51 Hypocalcemia; K86.1 Other chronic pancreatitis; E86.9 Volume depletion, unspecified; E87.6 Hypokalemia; F32.9 Major depressive disorder, single episode, unspecified; F17.210 Nicotine dependence, cigarettes, uncomplicated; N83.209 Unspecified ovarian cyst, unspecified side; R06.89 Other abnormalities of breathing; Z53.21 Procedure and treatment not carried out due to patient leaving prior to being seen by health care provider; G40.909 Epilepsy, unspecified, not intractable, without status epilepticus; B96.81 Helicobacter pylori [H. pylori] as the cause of diseases classified elsewhere; F41.1 Generalized anxiety disorder; J45.909 Unspecified asthma, uncomplicated; Z80.1 Family history of malignant neoplasm of trachea, bronchus and lung; Z87.11 Personal history of peptic ulcer disease; Z91.5 Personal history of self-harm; Z88.8 Allergy status to other drugs, medicaments and biological substances
CPT/HCPCS: 36415; 36600; 71045; 74177; 80048; 80053; 80074; 80307; 82010; 82040; 82306; 82330; 82803; 82962; 83036; 83605; 83690; 83735; 83970; 84100; 84703; 85025; 86022; 86677; 87040; 87081; 94640; 96361; 96374; 96375; 96376; J0295; J2405; J2560; J3411; J3475; J3480; J7070; J7608; J7613; Q9967; C9113; J1815; J2060; J2270; J2765; J7030; J7040; S0028

== ENCOUNTER 2017-09-28 10:16 | Emergency (ER) | payer MEDICAID ==
[~2017-09-28] VITALS: Ht 152.4 cm; Wt 52.8 kg
[2017-09-28] MEDS ORDERED: KETOROLAC 30 MG/1 ML IVPush ONE (11:00)
[2017-09-28] MEDS ORDERED: LORazepam 2 MG/ML, 1ML IVPush ONE (11:00)
[2017-09-28] MEDS ORDERED: SODIUM CHLORIDE 0.9% 1,000ML IVBOLUS ONE (11:00)
[2017-09-28] MEDS ORDERED: ONDANSETRON 2MG/ML, 2ML IVPush ONE (11:00)
[2017-09-28] MEDS ORDERED: SODIUM CHLORIDE FLUSH 10ML SYR IVF ONE (11:00)
[2017-09-28] MEDS ORDERED: LORazepam 2 MG/ML, 1ML ONE (11:18)
[2017-09-28] MEDS ORDERED: KETOROLAC 30 MG/1 ML ONE (11:18)
[2017-09-28] MEDS ORDERED: ONDANSETRON 2MG/ML, 2ML ONE (11:24)
[2017-09-28 11:26] LABS: BASOPHILS # (AUTO) 0.06 x10^3/uL (0-0.1); BASOPHILS % (AUTO) 0 % (0-1); EOSINOPHILS # (AUTO) 0.03 x10^3/uL (0-0.4); EOSINOPHILS % (AUTO) 0 % (1-7); LYMPHOCYTES # (AUTO) 1.73 x10^3/uL (1-3.4); LYMPHOCYTES % (AUTO) 13 % (22-44); MD NO; MEAN CORPUSCULAR HGB CONC 34.1 g/dL (32.4-35.8); MEAN CORPUSCULAR VOLUME 93.8 fL (80-100); MONOCYTES # (AUTO) 0.41 x10^3/uL (0.2-0.8); MONOCYTES % (AUTO) 3 % (2-9); NEUTROPHILS # (AUTO) 11.01 x10^3/uL (1.8-6.8); NEUTROPHILS % (AUTO) 83 % (42-75); PLATELET COUNT 376 x10^3/uL (130-400); RED BLOOD COUNT 4.55 x10^6/uL (3.82-5.3); RED CELL DISTRIBUTION WIDTH 15.9 % (9.6-15.2)
[2017-09-28 11:36] LABS: ALANINE AMINOTRANSFERASE 53 U/L (12-78); ALBUMIN 3.5 g/dL (3.4-5.0); ANION GAP 18 mmol/L (5-15); CALCIUM 8.3 mg/dL (8.5-10.1); CHLORIDE 99 mmol/L (98-107); CREATININE 0.67 mg/dL (0.55-1.02)
[2017-09-28 11:40] LABS: ALKALINE PHOSPHATASE 111 U/L (45-117); BILIRUBIN,TOTAL 0.4 mg/dL (0.2-1.0); TOTAL PROTEIN 7.7 g/dL (6.4-8.2)
[2017-09-28] MEDS ORDERED: CHLORDIAZEPOXIDE 25 MG CAPSULE PO ONE (12:00)
[2017-09-28] MEDS ORDERED: CHLORDIAZEPOXIDE 25 MG CAPSULE ONE (12:14)
[2017-09-28 12:19] VITALS: BP 123/82
== END 2017-09-28 13:05 | disposition home or self-care (01) ==
LOC: ED 11:25
DX: K70.0 Alcoholic fatty liver (principal); F10.239 Alcohol dependence with withdrawal, unspecified; J45.909 Unspecified asthma, uncomplicated; F32.9 Major depressive disorder, single episode, unspecified; F41.9 Anxiety disorder, unspecified; K70.9 Alcoholic liver disease, unspecified
CPT/HCPCS: 36415; 80053; 83690; 84703; 85025; 96361; 96374; 96375; 99285; J1885; J2060; J2405; J7030

== ENCOUNTER 2017-12-02 00:25 | Emergency (ER) | payer MEDICAID ==
[~2017-12-02] VITALS: Ht 152.4 cm; Wt 55.0 kg
[~2017-12-02 00:25] MED LIST changes: +CYCL-259 PO; +CYCL5TAB PO; +LEVO750P2 PO; +THIA100T6 PO
[2017-12-02 00:31] VITALS: BP 113/73
[2017-12-02] MEDS ORDERED: METOCLOPRAMIDE 5 MG/ML, 2ML IVPush ONE (01:00)
[2017-12-02] MEDS ORDERED: SODIUM CHLORIDE 0.9% 1,000ML IVBOLUS ONE (01:00)
== END 2017-12-02 01:17 | disposition home or self-care (01) ==
LOC: ED 01:00
DX: F10.120 Alcohol abuse with intoxication, uncomplicated (principal)
CPT/HCPCS: 99283

== ENCOUNTER 2017-12-08 13:59 | Inpatient (IN) | payer MEDICAID ==
[~2017-12-08] VITALS: Ht 154.9 cm; Wt 53.1 kg
[2017-12-08 15:09] LABS: BASOPHILS % (AUTO) 0 % (0-1); EOSINOPHILS # (AUTO) 0.04 x10^3/uL (0-0.4); EOSINOPHILS % (AUTO) 1 % (1-7); LYMPHOCYTES # (AUTO) 1.87 x10^3/uL (1-3.4); LYMPHOCYTES % (AUTO) 27 % (22-44); MD NO; MEAN CORPUSCULAR HEMOGLOBIN 31.2 pg (27.0-34.8); MEAN CORPUSCULAR HGB CONC 33.1 g/dL (32.4-35.8); MEAN CORPUSCULAR VOLUME 94.1 fL (80-100); MEAN PLATELET VOLUME 8.1 fL (7.4-10.4); MONOCYTES # (AUTO) 0.16 x10^3/uL (0.2-0.8); MONOCYTES % (AUTO) 2 % (2-9); NEUTROPHILS # (AUTO) 4.77 x10^3/uL (1.8-6.8); NEUTROPHILS % (AUTO) 70 % (42-75); PLATELET COUNT 353 x10^3/uL (130-400); RED CELL DISTRIBUTION WIDTH 18.5 % (9.6-15.2)
[2017-12-08 15:17] LABS: ALANINE AMINOTRANSFERASE 110 U/L (12-78); ALBUMIN 3.8 g/dL (3.4-5.0); ANION GAP 23 mmol/L (5-15); CALCIUM 8.5 mg/dL (8.5-10.1); CHLORIDE 98 mmol/L (98-107); CREATININE 0.62 mg/dL (0.55-1.02)
[2017-12-08 15:22] LABS: ALKALINE PHOSPHATASE 136 U/L (45-117); BILIRUBIN,TOTAL 0.4 mg/dL (0.2-1.0); TOTAL PROTEIN 8.8 g/dL (6.4-8.2)
[2017-12-08] MEDS ORDERED: SODIUM CHLORIDE 0.9% 1,000 ML IV ONE ×2 (17:06→17:55)
[2017-12-08] MEDS ORDERED: SODIUM CHLORIDE 0.9% 1,000ML IVBOLUS ONE (17:30)
[2017-12-08] MEDS ORDERED: LORazepam 2 MG/ML, 1ML IVPush PRN (17:30)
[2017-12-08] MEDS ORDERED: SODIUM CHLORIDE FLUSH 10ML SYR IVF ONE (17:30)
[2017-12-08] MEDS ORDERED: ONDANSETRON ODT 4 MG PO ONE (17:30)
[2017-12-08] MEDS ORDERED: THIAMINE 100 MG in SODIUM CHLORIDE 0.9% 50 ML IVPB ONE (17:30)
[2017-12-08] MEDS ORDERED: LORazepam 2 MG/ML, 1ML ONE (17:45)
[2017-12-08] MEDS ORDERED: ONDANSETRON ODT 4 MG ONE (17:45)
[2017-12-08] MEDS ORDERED: SODIUM CHLORIDE FLUSH 10ML SYR IVF PRN (18:00)
[2017-12-08] MEDS ORDERED: hydrALAzine 20 MG/ML, 1ML IVPush PRN (20:30)
[2017-12-08] MEDS ORDERED: POTASSIUM CHLORIDE 20 MEQ TAB.ER.PRT PO ONE (20:30)
[2017-12-08] MEDS ORDERED: BISACODYL 10 MG SUPP PR PRN (20:30)
[2017-12-08] MEDS ORDERED: DOCUSATE 100 MG CAPSULE PO PRN (20:30)
[2017-12-08] MEDS ORDERED: LORazepam 2 MG/ML, 1ML IV PRN ×5 (20:30)
[2017-12-08] MEDS ORDERED: morphine SULFATE 10 MG/ML, 1ML IVPush PRN (20:30)
[2017-12-08] MEDS ORDERED: PROMETHAZINE 25 MG/ML, 1ML IM PRN (20:30)
[2017-12-08] MEDS ORDERED: POLYETHYLENE GLYCOL 17 GM PACKET PO PRN (20:30)
[2017-12-08] MEDS ORDERED: LORazepam 0.5MG TABLET PO PRN (20:30)
[2017-12-08] MEDS ORDERED: OXYcodone IR 5MG TABLET PO PRN (20:30)
[2017-12-08] MEDS ORDERED: LORazepam 1MG TABLET PO PRN ×4 (20:30)
[2017-12-08] MEDS ORDERED: ONDANSETRON 2MG/ML, 2ML IVPush PRN (20:30)
[2017-12-08] MEDS ORDERED: ERGOCALCIFEROL 50,000 UNIT CAPSULE PO SCH (20:30)
[2017-12-08 20:42] LABS: INTERNATIONAL NORMALIZED RATIO 0.94 (0.93-1.1); PROTHROMBIN TIME 9.8 Seconds (9.6-11.5)
[2017-12-08] MEDS ORDERED: OMNIPAQUE 350 MG/ML, 100ML BOTTLE ONE (20:52)
[2017-12-08 20:53] LABS: FREE T4 (FREE THYROXINE) 0.93 ng/dL (0.76-1.46); THYROID STIMULATING HORMONE 0.517 mIU/L (0.358-3.740)
[2017-12-08 21:06] LABS: HEMOGLOBIN A1C 5.4 % (4.2-6.3)
[2017-12-08] MEDS ORDERED: POTASSIUM CHLORIDE 20 MEQ TAB.ER.PRT ONE (21:45)
[2017-12-08] MEDS ORDERED: PANTOPRAZOLE 40 MG IV ONE (21:45)
[2017-12-08] MEDS ORDERED: NICOTINE 14MG/24 HR PATCH.TD24 ONE (21:45)
[2017-12-08] MEDS: PANTOPRAZOLE 40 MG IV IVPush SCH (21:49)
[2017-12-08] MEDS: NICOTINE 14MG/24 HR PATCH.TD24 TD SCH (21:49)
[2017-12-08 22:24] VITALS: BP 138/91
[2017-12-08 22:27] VITALS: BP 138/91
[2017-12-08] MEDS: VALACYCLOVIR 500MG TABLET PO SCH (22:55)
[2017-12-08] MEDS: SODIUM CHLORIDE 0.9% 1,000 ML IV SCH (22:55)
[2017-12-09] MEDS: SODIUM CHLORIDE 0.9% 1,000 ML IV SCH ×3 (02:33→22:25)
[2017-12-09 03:40] VITALS: BP 126/80
[2017-12-09 06:11] VITALS: BP 123/87
[2017-12-09] MEDS: VALACYCLOVIR 500MG TABLET PO SCH ×3 (06:39→23:03)
[2017-12-09 06:46] LABS: MICROSCOPIC AUTO
[2017-12-09 06:48] LABS: CULTURE INDICATED? NO
[2017-12-09] MEDS: MULTIVITAMIN 1 TABLET PO SCH (07:58)
[2017-12-09] MEDS: FOLIC ACID 1 MG TABLET PO SCH (07:58)
[2017-12-09] MEDS: THIAMINE 100MG TABLET PO SCH (07:59)
[2017-12-09 10:00] LABS: ALANINE AMINOTRANSFERASE 80 U/L (12-78); ALBUMIN 3.1 g/dL (3.4-5.0); ANION GAP 14 mmol/L (5-15); CHLORIDE 99 mmol/L (98-107); CREATININE 0.43 mg/dL (0.55-1.02)
[2017-12-09 10:03] LABS: ALKALINE PHOSPHATASE 109 U/L (45-117); BILIRUBIN,TOTAL 0.9 mg/dL (0.2-1.0); TOTAL PROTEIN 7.5 g/dL (6.4-8.2)
[2017-12-09 10:26] LABS: MEAN CORPUSCULAR HEMOGLOBIN 31.3 pg (27.0-34.8); MEAN CORPUSCULAR HGB CONC 33.5 g/dL (32.4-35.8); MEAN CORPUSCULAR VOLUME 93.5 fL (80-100); MEAN PLATELET VOLUME 8.6 fL (7.4-10.4); PLATELET COUNT 238 x10^3/uL (130-400); RED BLOOD COUNT 4.11 x10^6/uL (3.82-5.3); RED CELL DISTRIBUTION WIDTH 18.2 % (9.6-15.2)
[2017-12-09 10:44] LABS: BASOPHILS % (AUTO) 0 % (0-1); EOSINOPHILS # (AUTO) 0.07 x10^3/uL (0-0.4); EOSINOPHILS % (AUTO) 1 % (1-7); LYMPHOCYTES # (AUTO) 1.11 x10^3/uL (1-3.4); LYMPHOCYTES % (AUTO) 13 % (22-44); MD SCAN; MONOCYTES # (AUTO) 0.27 x10^3/uL (0.2-0.8); MONOCYTES % (AUTO) 3 % (2-9); NEUTROPHILS # (AUTO) 7.25 x10^3/uL (1.8-6.8); NEUTROPHILS % (AUTO) 83 % (42-75)
[2017-12-09] MEDS ORDERED: LORazepam 2 MG/ML, 1ML IVPush PRN (11:00)
[2017-12-09] MEDS: BACLOFEN 10 MG TABLET PO SCH ×2 (16:31→20:19)
[2017-12-09 16:51] VITALS: BP 125/82
[2017-12-09] MEDS: ONDANSETRON ODT 4 MG PO PRN (16:53)
[2017-12-09 19:15] VITALS: BP 122/83
[2017-12-09] MEDS: NICOTINE 14MG/24 HR PATCH.TD24 TD SCH (20:19)
[2017-12-09] MEDS: PANTOPRAZOLE 40 MG IV IVPush SCH (20:30)
[2017-12-10 00:34] VITALS: BP 131/89
[2017-12-10] MEDS: ONDANSETRON ODT 4 MG PO PRN (05:06)
[2017-12-10] MEDS: VALACYCLOVIR 500MG TABLET PO SCH ×2 (05:07→06:14)
[2017-12-10 07:32] VITALS: BP 120/81
[2017-12-10] MEDS: BACLOFEN 10 MG TABLET PO SCH (08:36)
[2017-12-10] MEDS: THIAMINE 100MG TABLET PO SCH (08:36)
[2017-12-10] MEDS: FOLIC ACID 1 MG TABLET PO SCH (08:36)
[2017-12-10] MEDS: MULTIVITAMIN 1 TABLET PO SCH (08:36)
[2017-12-10] MEDS ORDERED: VALA500T PO (09:10)
[2017-12-10] MEDS ORDERED: ONDA4TAB10 PO (09:10)
== END 2017-12-10 11:31 | disposition home or self-care (01) | DRG 433 ==
LOC: ED 17:07 → EDIP 17:55 → 3NE 22:15
PROVIDERS: ADMIT Internal Medicine; ATTEND Internal Medicine
DX: K70.10 Alcoholic hepatitis without ascites (principal); F10.221 Alcohol dependence with intoxication delirium; D69.6 Thrombocytopenia, unspecified; E87.2 Acidosis; B02.9 Zoster without complications; E87.1 Hypo-osmolality and hyponatremia; K86.1 Other chronic pancreatitis; D64.9 Anemia, unspecified; G40.909 Epilepsy, unspecified, not intractable, without status epilepticus; J45.909 Unspecified asthma, uncomplicated; F41.9 Anxiety disorder, unspecified; K76.0 Fatty (change of) liver, not elsewhere classified; E86.0 Dehydration; E55.9 Vitamin D deficiency, unspecified; E87.6 Hypokalemia; F17.200 Nicotine dependence, unspecified, uncomplicated; R74.0 Nonspecific elevation of levels of transaminase and lactic acid dehydrogenase [LDH]; G89.29 Other chronic pain; M54.9 Dorsalgia, unspecified; Z87.11 Personal history of peptic ulcer disease; Z91.19 Patient's noncompliance with other medical treatment and regimen; Z79.899 Other long term (current) drug therapy; Z88.8 Allergy status to other drugs, medicaments and biological substances
CPT/HCPCS: 36415; 74177; 80053; 80307; 81001; 83036; 83690; 83735; 84439; 84443; 84703; 85025; 85610; 96361; 96365; 96375; J3411; Q0162; Q9967; C9113; J2060; J7030

== ENCOUNTER 2018-01-08 05:38 | Inpatient (IN) | payer MEDICAID ==
[~2018-01-08] VITALS: Ht 154.9 cm; Wt 57.8 kg
[~2018-01-08 05:38] MED LIST changes: +VALA500T PO
[2018-01-08] MEDS ORDERED: ONDANSETRON ODT 4 MG ONE (06:21)
[2018-01-08] MEDS ORDERED: LORazepam 2 MG/ML, 1ML ONE (06:22)
[2018-01-08] MEDS ORDERED: SODIUM CHLORIDE 0.9%, 250ML IVBOLUS ONE (06:30)
[2018-01-08] MEDS ORDERED: ONDANSETRON ODT 4 MG PO ONE (06:30)
[2018-01-08] MEDS ORDERED: SODIUM CHLORIDE FLUSH 10ML SYR IVF ONE (06:30)
[2018-01-08] MEDS ORDERED: LORazepam 2 MG/ML, 1ML IVPush ONE (06:30)
[2018-01-08 06:41] LABS: ANION GAP 17 mmol/L (5-15); CALCIUM 8.2 mg/dL (8.5-10.1); CHLORIDE 105 mmol/L (98-107); CREATININE 0.66 mg/dL (0.55-1.02)
[2018-01-08 06:42] LABS: ALANINE AMINOTRANSFERASE 48 U/L (12-78); ALBUMIN 3.5 g/dL (3.4-5.0)
[2018-01-08 06:44] LABS: ALKALINE PHOSPHATASE 98 U/L (45-117); BILIRUBIN,TOTAL 0.3 mg/dL (0.2-1.0); TOTAL PROTEIN 7.6 g/dL (6.4-8.2)
[2018-01-08] MEDS ORDERED: [UNRECOGNIZED DRUG - REMARK] PO (07:06)
[2018-01-08] MEDS ORDERED: OLANZAPINE PO (07:06)
[2018-01-08] MEDS ORDERED: BISACODYL 10 MG SUPP PR PRN (09:30)
[2018-01-08] MEDS ORDERED: LORazepam 2 MG/ML, 1ML IVPush PRN (09:30)
[2018-01-08] MEDS ORDERED: ACETAMINOPHEN 325 MG TABLET PO PRN (09:30)
[2018-01-08] MEDS ORDERED: POLYETHYLENE GLYCOL 17 GM PACKET PO PRN (09:30)
[2018-01-08 09:37] VITALS: BP 131/78
[2018-01-08 09:53] LABS: BASOPHILS # (AUTO) 0.02 x10^3/uL (0-0.1); BASOPHILS % (AUTO) 0 % (0-1); EOSINOPHILS # (AUTO) 0.07 x10^3/uL (0-0.4); EOSINOPHILS % (AUTO) 1 % (1-7); LYMPHOCYTES # (AUTO) 1.69 x10^3/uL (1-3.4); LYMPHOCYTES % (AUTO) 16 % (22-44); MD NO; MEAN CORPUSCULAR HEMOGLOBIN 31.4 pg (27.0-34.8); MEAN CORPUSCULAR HGB CONC 33.4 g/dL (32.4-35.8); MEAN CORPUSCULAR VOLUME 94.1 fL (80-100); MONOCYTES # (AUTO) 0.61 x10^3/uL (0.2-0.8); MONOCYTES % (AUTO) 6 % (2-9); NEUTROPHILS # (AUTO) 8.44 x10^3/uL (1.8-6.8); NEUTROPHILS % (AUTO) 78 % (42-75); PLATELET COUNT 369 x10^3/uL (130-400); RED BLOOD COUNT 4.16 x10^6/uL (3.82-5.3); RED CELL DISTRIBUTION WIDTH 19.3 % (9.6-15.2)
[2018-01-08] MEDS: CHLORDIAZEPOXIDE 25 MG CAPSULE PO SCH ×3 (11:44→21:36)
[2018-01-08] MEDS: FAMOTIDINE 20 MG TABLET PO SCH ×2 (11:44→21:36)
[2018-01-08] MEDS: THIAMINE 100 MG, MVI ADULT 10 ML, FOLIC ACID 1 MG in D5%-0.9% NACL 1,000 ML IV SCH (11:59)
[2018-01-08] MEDS: ONDANSETRON 2MG/ML, 2ML IVPush PRN ×2 (12:07→20:05)
[2018-01-08] MEDS ORDERED: KETOROLAC 30 MG/1 ML IVPush PRN (14:00)
[2018-01-08 14:31] VITALS: BP 133/78
[2018-01-08] MEDS: NICOTINE 21 MG/24 HR PATCH.TD24 TD SCH (15:30)
[2018-01-08] MEDS ORDERED: DIPHENHYDRAMINE/ZINC CRM 2%, 30GM TP PRN (17:30)
[2018-01-08 20:59] VITALS: BP 117/85
[2018-01-09 02:45] VITALS: BP 128/87
[2018-01-09 05:17] LABS: BASOPHILS # (AUTO) 0.08 x10^3/uL (0-0.1); BASOPHILS % (AUTO) 1 % (0-1); EOSINOPHILS % (AUTO) 3 % (1-7); LYMPHOCYTES # (AUTO) 1.85 x10^3/uL (1-3.4); LYMPHOCYTES % (AUTO) 20 % (22-44); MD NO; MEAN CORPUSCULAR HEMOGLOBIN 31.4 pg (27.0-34.8); MEAN CORPUSCULAR HGB CONC 33.5 g/dL (32.4-35.8); MEAN CORPUSCULAR VOLUME 93.7 fL (80-100); MEAN PLATELET VOLUME 8.7 fL (7.4-10.4); MONOCYTES # (AUTO) 0.38 x10^3/uL (0.2-0.8); MONOCYTES % (AUTO) 4 % (2-9); NEUTROPHILS # (AUTO) 6.48 x10^3/uL (1.8-6.8); NEUTROPHILS % (AUTO) 71 % (42-75); PLATELET COUNT 318 x10^3/uL (130-400); RED BLOOD COUNT 4.34 x10^6/uL (3.82-5.3); RED CELL DISTRIBUTION WIDTH 18.7 % (9.6-15.2)
[2018-01-09 05:30] LABS: CHLORIDE 104 mmol/L (98-107)
[2018-01-09 05:38] LABS: ALANINE AMINOTRANSFERASE 37 U/L (12-78); ALBUMIN 3.2 g/dL (3.4-5.0); ALKALINE PHOSPHATASE 90 U/L (45-117); ANION GAP 9 mmol/L (5-15); CALCIUM 8.5 mg/dL (8.5-10.1); CREATININE 0.54 mg/dL (0.55-1.02); TOTAL PROTEIN 7.4 g/dL (6.4-8.2)
[2018-01-09] MEDS: CHLORDIAZEPOXIDE 25 MG CAPSULE PO SCH ×3 (05:44→16:53)
[2018-01-09 08:07] VITALS: BP 133/82
[2018-01-09] MEDS ORDERED: FONDAPARINUX 2.5 MG/0.5 ML SQ SCH (09:00)
[2018-01-09] MEDS: FAMOTIDINE 20 MG TABLET PO SCH (09:57)
[2018-01-09] MEDS: THIAMINE 100 MG, MVI ADULT 10 ML, FOLIC ACID 1 MG in D5%-0.9% NACL 1,000 ML IV SCH (11:19)
[2018-01-09 14:42] VITALS: BP 119/84
[2018-01-09] MEDS: NICOTINE 21 MG/24 HR PATCH.TD24 TD SCH (16:00)
[2018-01-09] MEDS ORDERED: NALT50TA PO (16:04)
[2018-01-09] MEDS ORDERED: POTASSIUM CHLORIDE 20 MEQ TAB.ER.PRT PO ONE (16:30)
[2018-01-09] MEDS ORDERED: LIBRIUM (22:59)
== END 2018-01-09 17:20 | disposition home or self-care (01) | DRG 897 ==
LOC: ED 06:39 → EDIP 06:48 → 3NE 08:11
PROVIDERS: ADMIT Internal Medicine; ATTEND Internal Medicine
DX: F10.239 Alcohol dependence with withdrawal, unspecified (principal); R74.0 Nonspecific elevation of levels of transaminase and lactic acid dehydrogenase [LDH]; F10.229 Alcohol dependence with intoxication, unspecified; F17.200 Nicotine dependence, unspecified, uncomplicated; G40.909 Epilepsy, unspecified, not intractable, without status epilepticus; K70.9 Alcoholic liver disease, unspecified; E86.0 Dehydration; J45.909 Unspecified asthma, uncomplicated; F32.9 Major depressive disorder, single episode, unspecified; Z88.8 Allergy status to other drugs, medicaments and biological substances; Z79.899 Other long term (current) drug therapy
CPT/HCPCS: 36415; 80053; 80307; 83735; 84100; 85025; 96374; J2405; J3411; J7042; Q0162; J1652; J2060; J7050

== ENCOUNTER 2018-01-09 22:39 | Emergency (ER) | payer MEDICAID ==
[~2018-01-09] VITALS: Ht 152.4 cm; Wt 58.0 kg
[~2018-01-09 22:39] MED LIST changes: +OLANZAPINE PO; +[UNRECOGNIZED DRUG - REMARK] PO
[2018-01-09 22:50] VITALS: BP 119/79
[2018-01-09] MEDS ORDERED: LIBRIUM (22:59)
[2018-01-09] MEDS ORDERED: PROCHLORPERAZINE 10MG TABLET PO ONE (23:00)
[2018-01-09] MEDS ORDERED: LORazepam 1MG TABLET PO ONE (23:00)
[2018-01-09] MEDS ORDERED: LORazepam 1MG TABLET ONE (23:04)
[2018-01-09] MEDS ORDERED: PROMETHAZINE 25 MG/ML, 1ML ONE (23:05)
[2018-01-09] MEDS ORDERED: PROMETHAZINE 25 MG/ML, 1ML IM ONE (23:30)
== END 2018-01-09 23:33 | disposition home or self-care (01) ==
LOC: ED 23:02
DX: F10.220 Alcohol dependence with intoxication, uncomplicated (principal); R11.2 Nausea with vomiting, unspecified; F41.9 Anxiety disorder, unspecified; F32.9 Major depressive disorder, single episode, unspecified; Z88.8 Allergy status to other drugs, medicaments and biological substances
CPT/HCPCS: 96372; 99283; J2550

== ENCOUNTER 2018-12-14 23:39 | Emergency (ER) | payer MEDICAID ==
[~2018-12-14] VITALS: Ht 157.5 cm; Wt 52.0 kg
[~2018-12-14 23:39] MED LIST changes: -CITA20TA5 PO; +CITA20TA6 PO; +LIBRIUM; -THIA100T6 PO; +THIA100T67 PO; +TRAZ-137 PO; -TRAZ100T15 PO
[2018-12-14 23:50] VITALS: BP 125/97
[2018-12-15] MEDS ORDERED: HYDR10TA4 PO (00:02)
[2018-12-15] MEDS ORDERED: OLAN5TAB9 PO (00:02)
[2018-12-15] MEDS ORDERED: CELE50CA PO (00:02)
[2018-12-15 00:17] LABS: BASOPHILS # (AUTO) 0.05 x10^3/uL (0-0.1); BASOPHILS % (AUTO) 1 % (0-1); EOSINOPHILS # (AUTO) 0.12 x10^3/uL (0-0.4); EOSINOPHILS % (AUTO) 1 % (1-7); LYMPHOCYTES # (AUTO) 4.51 x10^3/uL (1-3.4); LYMPHOCYTES % (AUTO) 44 % (22-44); MD NO; MEAN CORPUSCULAR HEMOGLOBIN 30.3 pg (27.0-34.8); MEAN CORPUSCULAR HGB CONC 33.1 g/dL (32.4-35.8); MEAN CORPUSCULAR VOLUME 91.4 fL (80-100); MEAN PLATELET VOLUME 7.9 fL (7.4-10.4); MONOCYTES # (AUTO) 0.67 x10^3/uL (0.2-0.8); MONOCYTES % (AUTO) 7 % (2-9); NEUTROPHILS # (AUTO) 4.93 x10^3/uL (1.8-6.8); NEUTROPHILS % (AUTO) 48 % (42-75); PLATELET COUNT 432 x10^3/uL (130-400); RED BLOOD COUNT 5.31 x10^6/uL (3.82-5.3); RED CELL DISTRIBUTION WIDTH 15.7 % (9.6-15.2)
--- NOTE | 2018-12-15 00:21 | NUR ---
PT AMBULATED TO RESTROOM FOR UA SAMPLE WITH STRONG STEADY GAIT.
[2018-12-15 00:28] LABS: ALANINE AMINOTRANSFERASE 18 U/L (12-78); ALBUMIN 3.4 g/dL (3.4-5.0); ANION GAP 9 mmol/L (5-15); CALCIUM 7.9 mg/dL (8.5-10.1); CHLORIDE 111 mmol/L (98-107); CREATININE 0.72 mg/dL (0.55-1.02)
[2018-12-15 00:28] LABS: MICROSCOPIC NOT IND
[2018-12-15 00:29] LABS: CULTURE INDICATED? NO
[2018-12-15 00:30] LABS: ALKALINE PHOSPHATASE 112 U/L (45-117); BILIRUBIN,TOTAL < 0.1 mg/dL (0.2-1.0); TOTAL PROTEIN 7.2 g/dL (6.4-8.2)
== END 2018-12-15 01:03 | disposition home or self-care (01) ==
LOC: ED 12-15 00:24
DX: F10.10 Alcohol abuse, uncomplicated (principal); F41.1 Generalized anxiety disorder; G40.909 Epilepsy, unspecified, not intractable, without status epilepticus; F32.9 Major depressive disorder, single episode, unspecified; J45.909 Unspecified asthma, uncomplicated
CPT/HCPCS: 36415; 80053; 81003; 81025; 85025; 93005; 99284

== ENCOUNTER 2018-12-19 01:38 | Emergency (ER) | payer MEDICAID ==
[~2018-12-19] VITALS: Ht 154.9 cm; Wt 54.4 kg
[~2018-12-19 01:38] MED LIST changes: +CELE50CA PO; +HYDR10TA4 PO; +OLAN5TAB9 PO
--- NOTE | 2018-12-19 02:06 | NUR ---
PT BIB [facility] WITH C/O WANTS TO GO TO [facility] FOR ETOH DETOX, PT INTOXICATED AT THIS TIME IN NAD PLAYING WITH HER PHONE
[2018-12-19 02:11] LABS: BASOPHILS # (AUTO) 0.18 x10^3/uL (0-0.1); BASOPHILS % (AUTO) 1 % (0-1); EOSINOPHILS # (AUTO) 0.18 x10^3/uL (0-0.4); EOSINOPHILS % (AUTO) 1 % (1-7); LYMPHOCYTES # (AUTO) 2.98 x10^3/uL (1-3.4); LYMPHOCYTES % (AUTO) 19 % (22-44); MD NO; MEAN CORPUSCULAR HEMOGLOBIN 30.7 pg (27.0-34.8); MEAN CORPUSCULAR HGB CONC 33.4 g/dL (32.4-35.8); MEAN CORPUSCULAR VOLUME 91.9 fL (80-100); MONOCYTES # (AUTO) 0.97 x10^3/uL (0.2-0.8); MONOCYTES % (AUTO) 6 % (2-9); NEUTROPHILS # (AUTO) 11.82 x10^3/uL (1.8-6.8); NEUTROPHILS % (AUTO) 73 % (42-75); PLATELET COUNT 397 x10^3/uL (130-400); RED BLOOD COUNT 5.24 x10^6/uL (3.82-5.3); RED CELL DISTRIBUTION WIDTH 15.9 % (9.6-15.2)
[2018-12-19 02:20] LABS: ANION GAP 11 mmol/L (5-15); CALCIUM 8.3 mg/dL (8.5-10.1); CHLORIDE 110 mmol/L (98-107); CREATININE 0.74 mg/dL (0.55-1.02)
--- NOTE | 2018-12-19 02:40 | NUR ---
PT TO BR PROVIDED UA, SENT TO LAB PT STABLE IN NAD
[2018-12-19 02:55] VITALS: BP 98/64
[2018-12-19 02:58] LABS: AMPHETAMINE SCREEN, URINE Positive (Negative); BARBITURATE SCREEN, URINE Negative (Negative); BENZODIAZEPINE SCREEN, URINE Negative (Negative); CANNABINOID SCREEN, URINE Negative (Negative); COCAINE SCREEN, URINE Negative (Negative); METHADONE SCREEN, URINE Negative (Negative); OPIATE SCREEN, URINE Negative (Negative)
--- NOTE | 2018-12-19 03:24 | NUR ---
PT ESCORTED OUT BY SECURITY SCREAMING CALLING STAFF "cunts"
== END 2018-12-19 03:27 | disposition home or self-care (01) ==
LOC: ED 03:22
DX: F15.220 Other stimulant dependence with intoxication, uncomplicated (principal); Z72.9 Problem related to lifestyle, unspecified; M79.671 Pain in right foot; G40.909 Epilepsy, unspecified, not intractable, without status epilepticus; F32.9 Major depressive disorder, single episode, unspecified; J45.909 Unspecified asthma, uncomplicated
CPT/HCPCS: 36415; 80048; 80307; 83735; 85025; 99284

== ENCOUNTER → 2020-05-09 | Outpatient (CLI) | payer MEDICAID ==
[~2020-05-09] MED LIST changes: +CYAN50003 PO; +FLUO20CA23 PO; +HYDR-2995 PO; -HYDR10TA4 PO; +MELA1TAB19 PO; -TRAZ-137 PO; +TRAZ-175 PO; -VALA500T PO; +VALA500T8 PO; +[UNRECOGNIZED DRUG - OTHER] PO
== END | disposition home or self-care (01) ==
LOC: STAR 09:02
PROVIDERS: ATTEND Orthopaedic Surgery
DX: Z01.812 Encounter for preprocedural laboratory examination (principal); S83.014A Lateral dislocation of right patella, initial encounter; X58.XXXA Exposure to other specified factors, initial encounter; Y93.89 Activity, other specified; Y92.89 Other specified places as the place of occurrence of the external cause; Y99.8 Other external cause status; Z20.828 Contact with and (suspected) exposure to other viral communicable diseases
CPT/HCPCS: 36415; 87635

== ENCOUNTER 2020-05-13 05:12 | Day surgery (SDC) | payer MEDICAID ==
[~2020-05-13] VITALS: Ht 153.7 cm; Wt 55.3 kg
[2020-05-13 06:14] VITALS: BP 135/83
[2020-05-13 06:20] LABS: HCG UR SG 1.024 (1.003-1.030)
[2020-05-13] MEDS ORDERED: ALBUTEROL PO (06:27)
[2020-05-13] MEDS ORDERED: LACTATED RINGERS 1,000 ML IV SCH (06:30)
[2020-05-13] MEDS ORDERED: CHLORHEXIDINE 15 ML UDC MM ONE (06:30)
[2020-05-13] MEDS ORDERED: FENTANYL PF 100 MCG/2ML ONE ×2 (06:31→07:47)
[2020-05-13] MEDS ORDERED: MIDAZOLAM 1 MG/ML, 2ML ONE (06:31)
[2020-05-13] MEDS ORDERED: LIDOCAINE 1%, 20ML ONE (06:42)
[2020-05-13] MEDS ORDERED: ROPIvacaine/PF 0.5%, 30 ML ONE (06:42)
[2020-05-13] MEDS ORDERED: DEXAMETHASONE 4 MG/ML, 1ML ONE (07:04)
[2020-05-13] MEDS ORDERED: PROPOFOL 10 MG/ML, 20ML ONE (07:04)
[2020-05-13] MEDS ORDERED: CEFAZOLIN 1,000 MG ONE (07:04)
[2020-05-13] MEDS ORDERED: ONDANSETRON 2MG/ML, 2ML ONE (07:04)
[2020-05-13] MEDS ORDERED: LIDOCAINE 1%, 50ML INFIL ONE (07:56)
[2020-05-13] MEDS ORDERED: ROPIvacaine/PF 0.5%, 30 ML INFIL ONE (07:57)
[2020-05-13] MEDS ORDERED: KETOROLAC 30 MG/1 ML IVPush PRN (08:00)
[2020-05-13] MEDS ORDERED: MEPERIDINE/PF 25MG/0.5ML IVPush PRN (08:00)
[2020-05-13] MEDS ORDERED: HYDROmorphone 1 MG/ML, 1ML INJ IVPush PRN (08:00)
[2020-05-13] MEDS ORDERED: LORazepam 2 MG/ML, 1ML IVPush PRN (08:00)
[2020-05-13] MEDS ORDERED: FENTANYL PF 100 MCG/2ML IV PRN (08:00)
[2020-05-13] MEDS ORDERED: PROMETHAZINE 25 MG/ML, 1ML IVPush PRN (08:00)
[2020-05-13] MEDS ORDERED: HYDROcodone/APAP 7.5-325MG/15ML UDC PO PRN (08:00)
[2020-05-13] MEDS ORDERED: OXYcodone 5 MG/5 ML ORAL.SOL UDC PO PRN (08:00)
[2020-05-13] MEDS ORDERED: MEPERIDINE/PF 25MG/ML,1ML ONE (08:42)
== END 2020-05-13 10:20 | disposition home or self-care (01) ==
LOC: OUT 05:12
PROVIDERS: ATTEND Orthopaedic Surgery
DX: M22.01 Recurrent dislocation of patella, right knee (principal); M65.861 Other synovitis and tenosynovitis, right lower leg; G89.18 Other acute postprocedural pain; F32.9 Major depressive disorder, single episode, unspecified; F41.9 Anxiety disorder, unspecified; J45.909 Unspecified asthma, uncomplicated; F10.10 Alcohol abuse, uncomplicated; F17.200 Nicotine dependence, unspecified, uncomplicated; Z79.899 Other long term (current) drug therapy; Z88.8 Allergy status to other drugs, medicaments and biological substances
CPT/HCPCS: 27427; 29873; 64447; 73560; 81025; C1713; C1762; J0690; J1100; J2250; J2405; J2704; J2795; J3010; J7120; 76000

== ENCOUNTER 2020-05-20 16:47 | Emergency (ER) | payer MEDICAID ==
[~2020-05-20] VITALS: Ht 152.4 cm; Wt 56.8 kg
[~2020-05-20 16:47] MED LIST changes: +ALBUTEROL PO
[2020-05-20 16:52] VITALS: BP 116/73
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
[2020-05-20] MEDS ORDERED: SODIUM CHLORIDE FLUSH 10ML SYR IVF ONE (18:00)
--- NOTE | 2020-05-20 18:35 | NUR ---
task rn: pt knee wrapped per radiology request at this time. radiology notified of securement of knee at this time.
[2020-05-20] MEDS ORDERED: NEOSPORIN OINT. PKT 1 PACKET ONE (19:35)
== END 2020-05-20 20:04 | disposition home or self-care (01) ==
LOC: ED 17:12
DX: R07.89 Other chest pain (principal)
CPT/HCPCS: 71046; 93005; 99283